=== PATIENT | female | born 1945 | race Caucasian/White ===

== ENCOUNTER 2016-09-05 18:26 | Inpatient (IN) | payer MEDICARE, OTHER ==
--- NOTE | ~2016-09-05 | EKG ---
PATIENT: EMILY LEDEZMA UNIT #: [id number] Ventricular Rate: 110 BPM Atrial Rate: 110 BPM P-R Interval: 166 ms QRS Duration: 74 ms Q-T Interval: 352 ms QTC Calculation(Bezet): 476 ms P [place]: 63 degrees Calculated R [place]: -31 degrees Calculated T [place]: 22 degrees Diagnosis Line: Sinus tachycardia Premature atrial complexes Diagnosis Line: Possible Left atrial enlargement Diagnosis Line: Left axis deviation Diagnosis Line: Abnormal ECG Diagnosis Line: When compared with ECG of 15-AUG-2016 09:37, Diagnosis Line: No significant change was found Diagnosis Line: Confirmed by DARIAN SEVERINO MD ([id number]) on 09/06/2016 Diagnosis Line: 7:32:01 PM INTERPRETING MD: MAYCOL ANDERSEN
--- NOTE | ~2016-09-05 | DS ---
Unit #: [id number] #: [id number] Patient: EMILY LEDEZMA [id number] [address] [place], [place] [address] [id number] I MR#: [id number] NAME: EMILY LEDEZMA ROOM: 452 Age: 70 Sex: F Admission Date: 09/05/2016 : 1945 Discharge Date: 09/08/2016 Attending Physician: Andry Cartwright M.D. Primary Care Physician: Ko Davidson M.D. DISCHARGE SUMMARY DISCHARGE DIAGNOSES 1. Healthcare-acquired pneumonia, treating for presumed gram-negative luis. 2. 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 She is currently receiving chemotherapy and radiation therapy with Dr. Davidson. 3. Chronic normocytic anemia. Hemoglobin and hematocrit are stable during this hospitalization. 4. Type 2 diabetes. Will resume her home sliding scale insulin. 5. Chronic pain. 6. Acute chronic obstructive pulmonary disease exacerbation. She will be discharged on a course of tapered steroids. CONSULTANTS 1. Dr. Harding of pulmonary. 2. Dr. Davidson of oncology. PROCEDURES None. DIAGNOSTIC STUDIES IMAGING: Chest x-ray on 09/05/16. Impression - Worsening when compared to the study from the day before with new patchy alveolar infiltrates in the right mid and lower lung zones. Opacification in the right upper lobe is stable. Left lung is slightly hyperinflated, suspicious for emphysematous changes. Heart size is normal. CT angiogram of chest on 09/05/16. In the body of the findings, it does say no evidence of pulmonary embolism. Impression - Difficult to discern between mass and postobstructive collapse lung. Narrowing of the right upper lobe bronchus, right bronchus intermedius and, to a lesser degree, the right middle and lower lobe bronchi - also seen on the previous study. Interstitial thickening in the lungs bilaterally, worse in the right lung. Noncalcified multiple lung nodules are noted bilaterally, some of which have increased in size in the last 11 days. Could be related to an infectious process, metastasis and lymphangitic carcinomatosis. Moderate right pleural effusion, stable to slightly worse. LABS: On the day of discharge the patient's labs included BMP with glucose of 294, BUN 7, creatinine 0.7, sodium 133, potassium 3.8, chloride 103, CO2 26, magnesium 1.7, total protein 7, total bilirubin 0.5, AST 24, ALT 26, alkaline phosphatase 82. CBC with WBC of 5.1, RBC 2.94, hemoglobin 8.8, hematocrit 27, MCV 91.9, MCH 30, MCHC 32.6, RDW 18.7, platelets 205, MPV 8. Unit #: [id number] #: [id number] Patient: EMILY LEDEZMA MICROBIOLOGY: Blood culture is stable. No growth. Gram stain sputum had moderate WBCs, moderate epithelial cells, a few gram-positive rods, few yeast, rare gram-positive cocci in pairs. Urine culture is pending at the time of discharge of discharge. HOSPITAL COURSE The patient is a pleasant 70-year-old female with past medical history of coronary artery disease, COPD, type 2 diabetes and squamous cell cancer of the lung who was admitted to [facility] due to fever, as well as dyspnea. The patient states that she was feeling well until 24 hours prior to admission when she began to experience feverish symptoms. She stated that she had a fever as high as 102, as well as sweats and chills that woke her up in the middle of the night with symptoms of dyspnea and pleuritic right back pain. She had noticed increasing wheezing and mild cough with the above symptoms. She presented to the emergency department where chest x-ray was done with findings as stated above. She then had a CT per PE protocol, which revealed no pulmonary embolism but, what appears to be, worsening of the lung cancer. The patient had chemotherapy and radiation therapy completed in June 2016. PET scan had mixed response, and she will be getting further chemotherapy next week. She was last admitted to our facility from 08/15 to 08/18 for methicillin-sensitive Staphylococcus aureus pneumonia with sepsis and was discharged home on Omnicef. The patient was seen in consultation with Dr. Davidson, as well as Dr. Harding. As the patient continued to get IV antibiotics and IV steroids, her symptoms were relieved. She has been using oxygen, I believe, more as supportive care during this hospitalization, but I am checking at this time to see if she will need oxygen upon discharge. Due to the fact that we cannot rule out if this is postobstructive pneumonia or worsening of the lung cancer, Dr. Davidson, her oncologist, has recommended that she be discharged with Levaquin 750 mg orally once daily for the next 10 days. I will also give her a course of steroids to taper. She was reminded to continue with her sliding scale insulin. She tells me that her diabetes is controlled with blood sugars typically less than 150. During this hospitalization, her blood sugars have been elevated, I believe, due to the steroid usage; therefore, I stressed for her to remain compliant with sliding scale insulin. DISCHARGE CONDITION Stable. DISCHARGE DISPOSITION Discharged to go home. DISCHARGE FOLLOWUP 1. She can follow up with her primary care physician within 1-2 weeks. 2. Follow up with Dr. Davidson, Dr. Harding per their recommendations. DISCHARGE DIET Heart healthy with consistent carb per [place] [employer] recommendations. DISCHARGE ACTIVITY Resume activity as per prior to hospitalization with ambulating every day. DISCHARGE MEDICINES 1. Pulmicort 2 puffs inhaled b.i.d. 2. Magnesium 400 mg orally daily. 3. Amitriptyline 50 mg orally daily. Unit #: [id number] #: [id number] Patient: EMILY LEDEZMA 4. Phenergan 25 mg orally q.6 hours as needed for nausea. 5. Atorvastatin 80 mg orally at bedtime. 6. Bentyl 10 mg orally t.i.d. as needed for cramping. 7. BuSpar 10 mg orally q.i.d. 8. Metoprolol tartrate 25 mg orally b.i.d. 9. Guaifenesin 600 mg orally b.i.d. 10. Lisinopril 5 mg orally at bedtime. 11. Aspirin 81 mg orally daily. 12. Hydromorphone 4 mg orally q.4 hours as needed for pain. 13. Oxycodone 10 mg orally q.4 hours as needed for pain. 14. Plavix 75 mg orally daily. 15. Omeprazole 20 mg orally daily. 16. Baclofen 10 mg orally t.i.d. 17. Nitroglycerin 0.4 mg orally. Use as directed for chest pain. 18. Levaquin 750 mg orally daily for the next [address] Davidson's recommendation. 19. Steroid. She can use prednisone 40 mg for the next 2 days, then 30 mg for 2 days, then 20 mg for the next 2 days, then 10 mg for the next 2 days, then she can stop. Dictated by... Elias Blue PA-C for Juliano Stratton TD: 09/08/2016 11:11 JOB #: [id number] DISCHARGE SUMMARY X X DISCHARGE SUMMARY
--- NOTE | ~2016-09-05 | CO ---
Unit #: [id number] #: [id number] Patient: EMILY LEDEZMA [id number] [address] [place], [place] [address] [id number] I MR#: [id number] NAME: EMILY LEDEZMA ROOM: 452 Age: 70 Sex: F Admission Date: 09/05/2016 : 1945 Attending Physician: Andry Cartwright M.D. Primary Care Physician: Ko Davidson M.D. CONSULTATION REPORT HISTORY OF PRESENT ILLNESS Ms. Ledezma is a 70-year-old white female with history of COPD, coronary artery disease, stage IV squamous cell carcinoma of the lung who presented to the emergency room with a 24-hour history of weight gain, short of breath, fever, and chills. Temperature was as high as 102. She admitted to some pleuritic back pain, increased wheezing, cough, congestion. She was seen here in the emergency room. Chest CT shows no pulmonary emboli. It did show stable cavitary lesion right upper lobe with narrowing of the right upper lobe orifice and some of the bronchus intermedius. There is increased interstitial thickening in the lungs bilaterally, worse on the right with multiple noncalcified lung nodules and ground glass nodules identified. It seemed to have increased in size since the last CT scan in early May. There is a moderate right pleural effusion which is slightly worse. She has been placed on triple drug therapy for healthcare-acquired pneumonia and we are asked to see. She has been afebrile in the hospital. Her admission O2 saturation on room air was listed at 96%. She received Solu-Medrol, aspirin, potassium in the emergency room. Her lab work was significant for a white count of 7500, hematocrit was 30.3, platelet count was normal. No procalcitonin was done. BNP was 130. PAST MEDICAL HISTORY 1. COPD. 2. Coronary artery disease. 3. Diabetes. 4. Stage IV nonsmall cell lung cancer, squamous cell, followed by Dr. Davidson, having completed external beam radiation in June 2016 with a mixed response on PET scan. 5. History of non ST elevated MA, July 2016, two stents placed. 6. History of hypertension. 7. Hyperlipidemia. 8. History of anemia. 9. Irritable bowel. 10. Cirrhosis. 11. DJD. PAST SURGICAL HISTORY 1. C-spine surgery. 2. Total abdominal hysterectomy. 3. Appendectomy. 4. Liver biopsy. 5. Hernia repair. 6. Bladder and bowel repair. 7. EGD. Unit #: [id number] #: [id number] Patient: EMILY LEDEZMA ALLERGIES Codeine, clindamycin. HOME MEDICATIONS 1. Magnesium. 2. Elavil. 3. Phenergan. 4. Bentyl. 5. BuSpar. 6. Lopressor. 7. Mucinex. 8. Lipitor. 9. Lisinopril. 10. Aspirin. 11. Dilaudid. 12. Plavix. 13. Prilosec. 14. Nitroglycerin. 15. Symbicort. 16. Albuterol. 17. Oxycodone. 18. Baclofen. 19. Letty's Magic Mouthwash. 20. NovoLog sliding scale. FAMILY HISTORY Breast cancer. SOCIAL HISTORY Lives with daughter. Stopped smoking in 2002. No alcohol or illicit drugs. REVIEW OF SYSTEMS A 10-point system negative other than mentioned above. PHYSICAL EXAMINATION GENERAL: White female in no distress. VITAL SIGNS: Blood pressure is 132/67, pulse 111, respiratory rate 18, afebrile. HEENT: Normocephalic and atraumatic. Pupils equal, round, and reactive. Sclerae nonicteric. Nasal passages patent. Posterior pharynx clear, edentulous. NECK: Supple. Trachea midline. No cervical or supraclavicular lymphadenopathy. LUNGS: Reveal diminished breath sounds right upper lobe, otherwise clear. No wheezing. CARDIAC: Regular rate and rhythm. Could not appreciate murmur, rub, or gallop. ABDOMEN: Nontender. Bowel sounds present. No hepatosplenomegaly. EXTREMITIES: Without clubbing, cyanosis, or edema. NEUROLOGIC: Awake, oriented x3. Cranial nerves grossly intact. Muscle strength symmetric bilaterally. Affect calm. SKIN: Warm and dry. DIAGNOSTIC STUDIES As noted. Unit #: [id number] #: [id number] Patient: EMILY LEDEZMA IMPRESSION 1. Dyspnea, likely secondary to chronic obstructive pulmonary disease exacerbation. 2. Nonsmall cell lung cancer, likely with progression. 3. Increased pulmonary nodules, increased density right base, likely progression of malignancy although cannot rule out the possibility of bacterial pneumonia given history of temperature to 102. PLAN 1. Will check procalcitonin level. 2. Adjust antibiotics as indicated. 3. Further recommendations pending this. Dictated by... Juliano Ureña/j luis TD: 09/07/2016 09:25 JOB #: [id number] CONSULTATION REPORT X Samir Harding MD X CONSULTATION REPORT
--- NOTE | ~2016-09-05 | CO ---
Unit #: [id number] #: [id number] Patient: EMILY LEDEZMA [id number] [address] [place], [place] [address] [id number] MR#: [id number] NAME: EMILY LEDEZMA ROOM: 452 Age: 70 Sex: F Admission Date: 09/05/2016 : 1945 Attending Physician: Andry Cartwright M.D. Primary Care Physician: Ko Davidson M.D. CONSULTATION REPORT CHIEF COMPLAINT Nonsmall cell lung cancer, squamous cell, stage IV disease, multiple lesions on the right side and the left side. She received chemoradiation. At present, she is taking Opdivo. She had a recent MO and stent. She came with shortness of breath. HISTORY OF PRESENT ILLNESS This is a 70-year-old female who started smoking at the age of 12 or 13. She has an 80 pack-year history of smoking. Recently, she lost [address] of the chest on March 27, 2016, in the ER, showed a necrotic mass in the right upper lobe. There was mediastinal lymphadenopathy. There were multiple lesions on the right side and a few lesion on the left. At first, we treated her like stage IIIB even though she was stage IV. She received chemoradiation. Patient had a followup PET scan on August 09, 2016. There is a mixed response. There is some FDG uptake. We started patient on Opdivo. She received just one dose. Today, she came with shortness of breath and dyspnea on exertion. Patient had a CT of the chest, PE protocol, on September 05, 2016. There was no PE. However, it looks like there is progression of the disease. Radiology mentioned lymphangitic carcinomatosis. She is on oxygen and receiving inhalers and antibiotics and is feeling better. REVIEW OF SYSTEMS CONSTITUTIONAL: No fever, no chills, no sweats, no weight loss. EYES: No visual symptoms. EARS, NOSE AND THROAT: There is no runny nose or sore throat or difficulty hearing. CARDIOVASCULAR: No chest pain. No shortness of breath. No palpitations. No orthopnea. No PND. RESPIRATORY: As mentioned above. GASTROINTESTINAL: No nausea, vomiting, diarrhea, constipation, hematochezia or melena. GENITOURINARY: No urinary frequency, hesitancy or urgency. No blood in the urine. MUSCULOSKELETAL: No muscle or joint pain. NEUROLOGIC: No headache. No numbness or tingling. No weakness. No seizure. PSYCHIATRIC: No anxiety, depression or mood disturbance. ENDOCRINE: No excessive urination or thirst. DERMATOLOGIC: No rash or change in the skin. Unit #: [id number] #: [id number] Patient: EMILY LEDEZMA ALLERGIC/IMMUNOLOGIC: No symptoms. HEMATOLOGIC/LYMPHATIC: Denies any symptoms. PAST MEDICAL HISTORY 1. Nonsmall cell lung cancer, squamous cell, stage IV, now progressive disease. 2. Chronic obstructive pulmonary disease. 3. Coronary artery disease, status post stent. 4. Congestive heart failure. 5. Hypertension. 6. Diabetes. PAST SURGICAL HISTORY 1. Extensive neck surgery, DJD. 2. Hysterectomy. 3. Appendectomy. ALLERGIES Needs to be verified CURRENT MEDICATIONS 1. Maxipime. 2. Vancomycin. 3. Lovenox. 4. Protonix. 5. Plavix. 6. Aspirin. 7. Symbicort. 8. Dilaudid. SOCIAL HISTORY As mentioned above. She started smoking at the age of 12 and has an 80 pack-year history of smoking, quit recently. Denies alcohol abuse. 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 FAMILY HISTORY Sister had breast cancer at age of 70. Mother had breast cancer at age of 63. PHYSICAL EXAMINATION VITAL SIGNS: Afebrile, O2 saturation on 2 liters 96%, blood pressure 132/67, and pulse 111. GENERAL: Patient is comfortable. ECOG is 0. The patient is pleasant. HEENT: Moist mucosa. Pupils equally reactive to light. Extraocular muscles intact. Sclerae anicteric. No obvious bleeding from nasal mucosa or oral mucosa. Scalp normal. Hearing normal. NECK: No JVD. No lymphadenopathy. LYMPHATIC/HEMATOLOGIC: There is no palpable adenopathy in the neck, axilla or inguinal area. CARDIOVASCULAR: S1, S2. Regular rate and rhythm. No S3 or S4. RESPIRATORY: Bilateral wheezes and rhonchi. ABDOMEN/GASTROINTESTINAL: Abdomen is soft, nontender, nondistended. No hepatosplenomegaly. EXTREMITIES: There is no clubbing, no cyanosis, no edema. No varicose veins. NEUROLOGICAL: Patient is alert, awake and oriented x3. Cranial nerves II-XII are intact. Sensory grossly intact. Motor is 4/5 in all four extremities. Gait is normal. Station is normal. Language is normal. Unit #: [id number] #: [id number] Patient: EMILY LEDEZMA Memory is normal. DTRs +2 in all four extremities. MUSCULOSKELETAL: No joint swelling. No bony tenderness. No muscle tenderness. SKIN: No petechiae, no rash, no ecchymosis. PSYCHIATRIC: No anxiety. No delusions or hallucinations. There is no agitation. Eye contact is normal. Affect is appropriate. There is no flight of ideas. DIAGNOSTIC STUDIES LABORATORY: WBC 6.1, hemoglobin 10.2, and platelets 215,000. Creatinine is 0.5. LFTs are normal. ASSESSMENT AND PLAN This is a 70-year-old female who has the following active issues: 1. Nonsmall cell lung cancer. It is squamous cell. Patient has stage IV disease. She was first treated like a Stage IIIB with chemotherapy and radiation. Now she has progressive disease. She has taken just one to two doses of Opdivo. CT of the chest now shows possible lymphangitic carcinomatosis. Once her acute condition is resolved, then we will give additional doses of Opdivo in the clinic. 2. Cardiovascular. She had a recent myocardial infarction. She has a stent. 3. Respirations. She has chronic obstructive pulmonary disease exacerbation. She is taking two antibiotics, but there is no obvious infiltrate. I will talk to the primary care. 4. Pain. Continue oxycodone. Note sent to Dr. Davidson to verify allergy. Dictated by... Juliano Mariscal TD: 09/06/2016 17:21 JOB #: [id number] CC: Fernanda Diaz A.P.R.N. CONSULTATION REPORT X Ko Davidson MD CONSULTATION REPORT
--- NOTE | ~2016-09-05 | CT16 ---
[facility] A Service of [facility] & [facility] RADIOLOGY TEXT RESULTS PATIENT: EMILY LEDEZMA LOCATION: C4B 45- : 45 UNIT #: [id number] AGE: [address]: Andry Cartwright MD SEX: F ORDER DR: [id number] [facility] [address] [place], [place] [address] [id number] I MR#: [id number] Acc #: [id number] NAME: EMILY LEDEZMA : 1945 SEX: F STUDY DATE/TIME: 09/05/2016 20:56 UNIT: C4B ROOM: [facility] STUDY DESCRIPTION: CT Angio Chest for PE Attending Physician: Ana Paula Reeder M.D. Ordering Physician: Enrique Hernanedz M.D. Primary Care Physician: Ko Davidson M.D. MEDICAL IMAGING REPORT This report is preliminary unless electronic signature is present EXAM CT angiogram chest PE protocol dated 09/05/2016. COMPARISON CT angiogram chest PE protocol dated 08/15/2016. HISTORY Right-sided chest pain and right back pain in this patient with known lung cancer with metastatic disease. Stage III [address] exam was performed with one or more of the following radiation dose reduction techniques: automatic exposure control, adjustment of mA and/or kV according to patient size, and iterative reconstruction. FINDINGS CT angiogram of the chest was obtained with IV contrast in the axial plane followed by sagittal and coronal reformats. No evidence of pulmonary embolism. There is narrowing of the right upper lobe pulmonary artery and its branches due to presence of mass in this region. Its appearance is stable when compared to the prior study. There is also some narrowing of the right middle lobe segmental branches. The left pulmonary artery is of relatively expected caliber without any filling defects to suggest acute thrombus. No aortic aneurysm or dissection. Atherosclerotic plaques are noted in the aorta and its branches. 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 There is moderate right pleural effusion which appears to have slightly increased when compared to the prior study from 11 days ago. There is a cavitating lesion in the right upper lobe. Right upper lobe bronchus is slightly narrowed. It is difficult to discern which portions of the lesion is a mass and which is the postobstructive collapsed relatively normal right lung. This appearance has not significantly changed when compared to the prior study. It extends from the superior right hilum all way to the lateral aspect of the right upper STS. [facility] A Service of [facility] RADIOLOGY TEXT RESULTS PATIENT: EMILY LEDEZMA LOCATION: [facility] 452-01 : 45 UNIT #: [id number] AGE: [address]: Andry Cartwright MD SEX: F ORDER DR: lobe abutting the pleura. Scattered ground-glass densities are noted in the lungs bilaterally, worse on the right when compared to the left and worse when compared the prior study. There are multiple noncalcified bilateral lung nodules involving multiple lobes. The largest one in the left lower lobe measures 1 x 1 cm and it has increased in size from 6 x 6.5 mm. The previously noted medial left upper lobe and posterolateral left upper lobe lung nodules are relatively stable. There is also a new left upper lobe lung nodule in the mid left lung. Two left lower lobe lung nodules are noted and both have increased in size with some minimal nodularity noted in the left lower lobe which is relatively stable. Previously measured 1.0 x 0.8 cm nodule abutting the pleura adjacent to the pleural effusion in the posteromedial right lower lobe has slightly increased in size to 1.4 x 0.9 cm. Other scattered previously seen lung nodule appear to have slightly increased in size with interval new significant interstitial thickening, particularly worse on the right lung. The soft tissue encasing the right upper lobe bronchus, right bronchus intermedius and to a lesser extent the right middle and inferior bronchi are redemonstrated. It is difficult to measure this lesion, the precarinal conglomeration of mediastinal lymphadenopathy measures 1.7 x 4.3 cm when compared to the prior 1.9 x 3.9 cm. There is also some subcarinal soft tissue which is ill-defined and suspicious for matted lymph nodes. There is an 8 mm lymph node which is immediately lateral to the right common carotid artery, just behind the clavicle which is stable to slightly increased. No significant axillary lymphadenopathy. Adjacent to the right internal mammary artery there are some mediastinal lymph nodes noted, the relatively larger one measuring 0.9 x 1.4 cm in the anterior superior mediastinum, stable. Degenerative changes are noted at multiple levels of the thoracolumbar spine. Imaged upper abdomen demonstrates asymmetrically smaller left kidney with left renal cysts measuring 1.4 x 2.0 cm. IMPRESSION 1. Patient is known to have a cavitating lesion in the right upper lobe which extends from the right hilum to the surface of the pleura laterally. It is difficult to discern between the mass and the postobstructive collapse lung. 2. There is narrowing of the right upper lobe bronchus, right bronchus intermedius and to a lesser degree the right middle and lower lobe bronchi. These are also seen on the previous study. 3. There is interval worsening of interstitial thickening in the lungs bilaterally, worse in the right lung. Noncalcified multiple lung nodules are noted bilaterally some of which have increased in size in the last 11 days. They could be related to an infectious process, metastasis and lymphangitic carcinomatosis. 4. Moderate right pleural effusion, stable to slightly worse. 5. Refer above to the detailed dictated report. 1. [facility]. [facility] A Service of [facility] RADIOLOGY TEXT RESULTS PATIENT: EMILY LEDEZMA LOCATION: [place] [address] : 45 UNIT #: [id number] AGE: [address]: Andry Cartwright MD SEX: F ORDER DR: Dictated by... Tripp Edouard M.D. THIS IS AN ELECTRONICALLY VERIFIED REPORT Tripp Edouard M.D. at 09/06/2016 10:45 AM CPR/celeste TD: 09/06/2016 06:26 JOB #: [id number] MEDICAL IMAGING REPORT COPY
--- NOTE | ~2016-09-05 | HP ---
Unit #: [id number] #: [id number] Patient: EMILY LEDEZMA [id number] [address] [place], [place] [address] [id number] E MR#: [id number] NAME: EMILY LEDEZMA ROOM: Age: 70 Sex: F Admission Date: 09/05/2016 : 1945 Attending Physician: Enrique Hernandez M.D. Primary Care Physician: Ko Davidson M.D. HISTORY AND PHYSICAL CHIEF COMPLAINT Healthcare-associated pneumonia and COPD exacerbation. HISTORY OF PRESENT ILLNESS This very pleasant 70-year-old female with CAD, COPD, AODM, and squamous cell CA of the lungs is admitted for healthcare-associated pneumonia. The patient states that she was well until the past 24 hours when she began to experience fever, sweats and chills. States that her temperature was as high as 102 degrees. She awoke around midnight with increasing shortness of breath and pleuritic right back pain. Notes increasing wheezing, and a mild cough with the above. She presents to this emergency department where a chest x-ray does show new right mid and lower lobe infiltrates consistent with pneumonia. The patient has a history of what I believe is stage IV squamous cell CA, status post chemotherapy and XRT which completed June 2016. Apparently, on PET scan, the patient had a mixed response, and plans are for further chemotherapy next week. The patient was last admitted to this facility 08/15 through 08/18/2016 for methicillin-sensitive Staphylococcus aureus pneumonia with sepsis and was discharged on Omnicef. PAST MEDICAL HISTORY 1. 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 Ko Davidson. The patient completed her chemotherapy and external beam radiation June 2016 but only had a mixed response on PET scan. Plans are for further chemotherapy next week. 2. Cnp-VU-ghcbuhcgs myocardial infarction July 2016. Two stents were placed. Ejection fraction 55%. 3. Hypertension. 4. AODM. 5. Hyperlipidemia. 6. History of anemia, also followed by Dr. Davidson. 7. History of cirrhosis, details are unknown. 8. Irritable bowel syndrome. 9. 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 10. C-spine surgery x2. 11. Total abdominal hysterectomy. 12. Appendectomy. 13. Liver biopsy. 14. Hernia repair. 15. Bladder and bowel repair. 16. EGD and colonoscopy performed March 2016 revealing diffuse Unit #: [id number] #: [id number] Patient: EMILY LEDEZMA gastritis, internal hemorrhoids, rectal polyp which was snared. ALLERGIES 1. Codeine. 2. Clindamycin. HOME MEDICATIONS 1. Magnesium 400 mg daily. 2. Elavil 50 mg h.s. 3. Phenergan p.r.n. 4. Bentyl 10 mg t.i.d. p.r.n. 5. BuSpar 10 mg q.i.d. 6. Lopressor 25 mg b.i.d. 7. Mucinex 600 mg b.i.d. 8. Lipitor 80 mg h.s. 9. Lisinopril 5 mg h.s. 10. Aspirin 81 mg daily. 11. Dilaudid 4 mg q.4 h. p.r.n. 12. Plavix 75 mg daily. 13. Omeprazole 20 mg daily. 14. P.r.n. nitroglycerin. 15. Symbicort 160/4.5 two puffs b.i.d. 16. P.r.n. albuterol inhaler. 17. Oxycodone 10 mg q.4 h. as needed. 18. Baclofen 10 mg t.i.d. 19. Letty's Magic mouthwash 10 mL q.i.d. 20. Low dose sliding scale NovoLog. SOCIAL HISTORY The patient lives with her daughter who is her healthcare surrogate. She stopped smoking in 2002. Does not drink alcohol. FAMILY HISTORY Breast cancer. REVIEW OF SYSTEMS Notable for increasing shortness of breath, pleuritic chest pain, fevers, sweats, chills, CAD, hypertension, AODM, anemia, hyperlipidemia, lung cancer, chronic pain, cirrhosis and above-mentioned surgeries. All other systems were reviewed and are negative. PHYSICAL EXAMINATION VITAL SIGNS: Temperature 97.6, pulse 98, respirations 15, blood pressure 117/72, O2 saturation 96% on room air. GENERAL: Pleasant, 70-year-old female currently in no acute distress. HEENT: Eyes PERRLA. Extraocular muscles are intact. Pharynx benign. NECK: Supple without adenopathy or thyromegaly. CHEST: Crackles on the right mid and right lower lobe. A few crackles at the left base. Increased I:E ratio. HEART: Normal S1, S2 without murmur. There is a port in the right upper chest. ABDOMEN: Bowel sounds are present. Mild hepatomegaly on exam, nontender, no masses. EXTREMITIES: Without clubbing, cyanosis, or edema. Pedal pulses are present. No ulcers on the feet. No splinter hemorrhages noted over the nail beds. LYMPH: No cervical, supraclavicular or axillary lymphadenopathy. NEUROLOGIC: Awake, alert, oriented. Cranial nerves are intact. Equal Unit #: [id number] #: [id number] Patient: EMILY LEDEZMA strength throughout. She is able to ambulate without assistance. DIAGNOSTIC STUDIES LABORATORY: Hematocrit 30.3 with a normal MCV, white count and platelet count. SMA-12 glucose 164, potassium 2.8, calcium 7.9, albumin 2.6. BNP 130. Lactic acid normal. ABG pH 7.44, pCO2 of 38, pO2 of 101, O2 saturation 94% on 2 liters of oxygen. Cardiac markers are negative. Flu serology is negative. IMAGING: Chest x-ray shows increased infiltrates in the right mid and right lower lobe consistent with pneumonia along with right upper lobe opacity which is stable. CARDIOVASCULAR: EKG sinus tachycardia, rate 110. APCs noted. Left axis deviation. ASSESSMENT 1. Healthcare-associated pneumonia and chronic obstructive pulmonary disease exacerbation. 2. Stage IV squamous cell lung cancer with mixed response from prior chemotherapy and radiation therapy. Plans are for further chemotherapy next wee by Dr. Davidson. 3. Hypokalemia. 4. Coronary artery disease with normal left ventricular function, status post PCI and stents. 5. Chronic normocytic anemia. 6. Adult-onset diabetes mellitus. 7. Chronic pain. PLAN 1. Await CT scan of the chest. 2. Vancomycin and cefepime and one dose of tobramycin. 3. Will continue steroids, give mucolytics, Symbicort and bronchodilators. Will consult patient's policy cancellation clerk. 4. Florastor. 5. Levemir sliding scale insulin. 6. DVT prophylaxis. 7. Oncology will be notified. 8. Replaced potassium, check magnesium. 9. IV fluids and supportive treatment. Dictated by Ana Paula Reeder M.D. AML/cs TD: 09/05/2016 23:01 JOB #: [id number] Unit #: [id number] #: [id number] Patient: EMILY LEDEZMA HISTORY AND PHYSICAL X Ana Paula Reeder MD X HISTORY AND PHYSICAL
--- NOTE | ~2016-09-05 | CR72 ---
[facility] A Service of [facility] & [facility] RADIOLOGY TEXT RESULTS PATIENT: EMILY LEDEZMA LOCATION: C4B 452-01 : [birth year] UNIT #: [id number] AGE: [address]: Andry Cartwright MD SEX: F ORDER DR: [id number] [facility] [address] [place], [place] [address] [id number] I MR#: [id number] Acc #: [id number] NAME: EMILY LEDEZMA : 1945 SEX: F STUDY DATE/TIME: 09/05/2016 18:44 UNIT: C4B ROOM: [facility] STUDY DESCRIPTION: CR Chest Single View Portable Attending Physician: Ana Paula Reeder M.D. Ordering Physician: Enrique Hernandez M.D. Primary Care Physician: Ko Davidson M.D. MEDICAL IMAGING REPORT This report is preliminary unless electronic signature is present EXAM Single view of the chest dated 09/05/2016 at [address] angiogram chest dated 08/15/2016, single-view chest dated 08/04/2016. HISTORY Shortness of air, right-sided chest pain and back pain today. FINDINGS Single view of the chest was obtained. There is worsening when compared to the study from yesterday, with new, patchy alveolar infiltrates in the right mid and lower lung zones. Previously noted opacification in the right upper lobe is stable. Port cath in the right upper chest and postoperative hardware in the cervical spine are stable. Left lung is slightly hyperinflated, suspicious for emphysematous changes. Heart is of normal size. Dictated by... Tripp Edouard M.D. THIS IS AN ELECTRONICALLY VERIFIED REPORT Tripp Edouard M.D. at 09/06/2016 10:30 AM CPR/psc TD: 09/06/2016 03:48 JOB #: [id number] MEDICAL IMAGING REPORT COPY
[2016-09-05 18:23] LABS: ARTERIAL BLD GAS O2 SATURATION 94.4 % (90.0-100.0); ARTERIAL BLOOD GAS HCO3 26.5 mmol/L; ARTERIAL BLOOD GAS MET HB 0.7 %sat (0.0-2.0); ARTERIAL BLOOD GAS PCO2 38.8 mmHg (35.0-45.0); ARTERIAL BLOOD GAS pH 7.443 (7.350-7.450)
[2016-09-05 18:25] LABS: ARTERIAL BLOOD GAS ALLEN TEST NORMAL; ARTERIAL BLOOD GAS ART SITE LEFT RADIAL; ARTERIAL BLOOD GAS DELIVERY NASAL CANNULA; ARTERIAL DRAW? YES
[~2016-09-05 18:26] MED LIST: ACYCLOVIR PO; ADVAIR 1001 DISK W/D PO; ALBUTEROL NEB; ALBUTEROL17 GM INH; ALBUTEROL17 GM NEB; ALBUTEROL20 ml INH; ALDACTAZIDE 25/1 TAB PO; AMITRIPTYLINE H50 MG PO; AMITRYPTYLINE; AMITRYPTYLINE PO; AMLODIPINE BESYL5 MG PO; ASPIRIN81 M2 PO; ASPIRINEC PO; ATIVAN PO; ATIVAN0.5 MG PO; ATORVASTATIN CA40 MG PO; ATORVASTATIN CA80 MG PO; AUGMENTIN875 M1 PO; AUGMENTIN875 MG PO; BACLOFEN10 MG; BACLOFEN10 MG PO; BACTRIM DS TABL1 TA1 PO; BACTRIM DS TABL1 TAB PO; BAYER CHEWABLE81 MG PO; BENADRYL ITCH28.3 G2 TP; BENTYL10 M1 PO; BENTYL10 MG PO; BENZONATATE PO; BUSPAR PO; BUSPIRONE HCL10 M1 PO; BUSPIRONE HCL10 MG PO; BYETTA; BYETTA10 MCG/0.0 INJ; BYETTA5 MCG/0.02 SQ; CALCIUM CARBON600 M1 PO; CEFDINIR300 M2 PO; CIPRO PO; CLEOCIN HCL300 M1 PO; CLOPIDOGREL75 MG PO; COMBIVENT INH14.7 GM INH; DELTASONE20 MG PO; DEXILANT60 MG PO; DICLOFENAC PO; DICYCLOMINE HCL20 MG PO; DILAUDID8 MG PO; FEOSOL PO; FERROUS GLUCON324 MG PO; FLEXERIL PO; FLEXERIL10 MG PO; FOLIC ACID1 MG PO; GLUCOPHAGE XR500 MG PO; GLUCOPHAGE500 MG PO; GLUCOTROL PO; HCTZ; HCTZ PO; HUMIBID-LA600 MG PO; HUMULIN N VIAL; HYDROCHLOROTHIA25 MG PO; HYDROMORPHONE HC4 MG PO; K-DUR10 MEQ PO; K-DUR20 ME1; KEFLEX500 MG PO; LASIX20 MG PO; LEVAQUIN PO; LEVAQUIN750 MG PO; LEVOFLOXACIN500 MG PO; LIORESAL10 MG PO; LIPITOR40 MG PO; LISINOPRIL; LISINOPRIL PO; LISINOPRIL20 MG PO; LISINOPRIL5 MG PO; LOPRESSOR PO; LORTAB 10/500 T1 TAB PO; MACROBID100 MG PO; MACRODANTIN50 MG PO; MAG-OXIDE400 MG PO; MAGNESIUM400 M1 PO; METFORMIN HCL1000 M1 PO; METFORMIN HCL500 M1 PO; METFORMIN HCL500 M2 PO; METFORMIN PO; METOPROLOL TAR25 MG PO; MEVACOR PO; MIRALAX17 GM PO; MONTELUKAST SOD10 MG PO; NAPROSYN500 MG PO; NITROGLYCERIN0.4 MG PO; NITROGLYGERIN0.4 MG SL; NORVASC PO; NORVASC10 MG PO; NOVOLIN 70/30 V10 M1 SUBQ; NOVOLIN N100 U/M1 SQ; NOVOLIN N100 U/ML INJ; NOVOLIN N100 U/ML SUBQ; NOVOLIN N100 UNIT/1 SQ; NOVOLIN N100 UNIT/1 SUBQ; OMEPRAZOLE20 M2 PO; OXYCODONE; OXYCODONE HCL10 MG PO; OXYCODONE HCL5 M1 PO; OXYCODONE-APAP1 EACH PO; OXYCODONE15 MG PO; OXYCONTIN10 MG PO; PATIENT'S PHARMACY; PERCOCET 10-651 EACH PO; PERCOCET5/325 PO; PHENERGAN PO; PHENERGAN PR; PHENERGAN25 M1 PO; PHENERGAN25 MG PO; PRILOSEC PO; PRINIVIL20 M1 PO; PRINIVIL40 MG PO; PROAIR HFA8.5 GM INH; PROMETHAZINE HC25 MG PO; PROVENTIL; RANITIDINE HCL150 M1 PO; ROBAXIN PO; ROXICODONE5 M1 PO; ROXICODONE5 MG PO; SENOKOT S1 TA1 PO; SEPTRA SUSPENS100 ML; SINGULAIR PO; SPIRIVA18 MCG INH; SYMBICORT INH; TAMIFLU75 M1 PO; TRAMADOL HCL50 M1; TRAMADOL HCL50 M1 PO; TRAMADOL HCL50 M2 PO; TUSSIONEX PENN473 ML PO; ULTRAM PO; VERAMYST; VICODIN 5/500 T1 TAB PO; VICODIN PO; VISTARIL PO; VITAMIN B-1000 MCG/1 IJ; VITAMIN B-1000 MCG/1 INJ; VOLTAREN75 MG PO; ZANTAC PO; ZANTAC150 MG PO; ZESTRIL40 MG PO; ZITHROMAX PO; ZOCOR PO; ZOFRAN PO; ZOFRANODT PO; [UNRECOGNIZED DRUG - OTHER]
[2016-09-05 19:38] LABS: BASOPHIL% 0.5 % (0-2.5); EOSINOPHIL# 0.3 X10e3 (0-0.7); EOSINOPHIL% 3.4 % (0.0-7.0); HEMATOCRIT 30.3 % (35.0-45.0); LYMPHOCYTE# 0.2 X10e3 (1.0-3.5); LYMPHOCYTE% 2.8 % (17.0-45.0); MEAN CELL VOLUME 91.4 FL (83-96); MEAN CORPUSCULAR HGB CONC 32.8 g/dL (30-36); MEAN PLATELET VOLUME 7.7 FL (6.5-11.5); MONOCYTE# 0.8 X10e3 (0-1.0); NEUTROPHIL# 6.1 X10e3 (1.5-7.1); NEUTROPHIL% 82.3 % (40-75); PLATELET COUNT 197 X10e3 (140-420); RED BLOOD COUNT 3.32 X10e (3.90-5.30); RED CELL DISTRIBUTION WIDTH 18.2 % (11.0-15.5); WHITE BLOOD COUNT 7.5 X10e3 (4.0-10.5)
[2016-09-05 19:41] LABS: DIFF IND NO
[2016-09-05] MEDS ORDERED: OXYCODONE HCL10 MG PO (19:49)
[2016-09-05 19:52] LABS: INR 1.2; PARTIAL THROMBOPLASTIN TIME 28.3 SECONDS (23.5-31.3); PROTHROMBIN TIME (PATIENT) 12.5 SECONDS (9.6-11.5)
[2016-09-05] MEDS ORDERED: BACLOFEN10 MG PO ×2 (19:53→19:54)
[2016-09-05] MEDS ORDERED: PROMETHAZINE25 MG/M1 INJ (19:54)
[2016-09-05 20:04] LABS: INFLUENZA A NEG (NEG); INFLUENZA B NEG (NEG)
[2016-09-05 20:12] LABS: ALBUMIN SERUM 2.6 g/dL (3.5-5.0); ALKALINE PHOSPHATASE 92 U/L (32-92); ALT (SGPT) 17 U/L (10-40); AST (SGOT) 19 U/L (10-42); BILIRUBIN, DIRECT 0.2 mg/dL (0.0-0.2); BILIRUBIN,INDIRECT 0.4 mg/dL (0.0-0.9); BILIRUBIN,TOTAL 0.6 mg/dL (0.2-2.0); BLOOD UREA NITROGEN 11 mg/dL (9-23); BUN/CREATININE RATIO 15.71; CALCIUM SERUM 7.9 mg/dL (8.4-10.2); CARBON DIOXIDE 26 mmol/L (22-31); CHLORIDE 103 mmol/L (100-111); CREATININE SERUM 0.7 mg/dL (0.6-1.4); GLOM FILT RATE Estimated ABOVE60 mL/min (>60); GLUCOSE FASTING 164 mg/dL (70-110); PROTEIN TOTAL SERUM 6.5 g/dL (6.0-8.3); SODIUM 137 mmol/L (135-145)
[2016-09-05 20:13] LABS: POC - CKMB 3.3 ng/mL (0.0-7.9); POC - TROPONIN <0.05 ng/mL (<=0.05)
[2016-09-05 20:16] LABS: POTASSIUM 2.8 mmol/L (3.5-5.1)
[2016-09-05 20:21] LABS: POC - CKMB 4.3 ng/mL (0.0-7.9); POC - TROPONIN <0.05 ng/mL (<=0.05)
[2016-09-05 23:43] LABS: POC - CKMB 4.4 ng/mL (0.0-7.9); POC - TROPONIN <0.05 ng/mL (<=0.05)
[2016-09-06 09:55] LABS: BASOPHIL% 0.1 % (0-2.5); EOSINOPHIL% 0.1 % (0.0-7.0); HEMATOCRIT 31.9 % (35.0-45.0); HEMOGLOBIN 10.2 gm/dL (12.0-16.0); LYMPHOCYTE# 0.1 X10e3 (1.0-3.5); MEAN CELL VOLUME 92.2 FL (83-96); MEAN CORPUSCULAR HEMOGLOBIN 29.4 PG (28-34); MEAN CORPUSCULAR HGB CONC 31.9 g/dL (30-36); MONOCYTE# 0.1 X10e3 (0-1.0); MONOCYTE% 2.1 % (3.0-12.0); NEUTROPHIL# 5.8 X10e3 (1.5-7.1); NEUTROPHIL% 95.7 % (40-75); PLATELET COUNT 215 X10e3 (140-420); RED BLOOD COUNT 3.46 X10e (3.90-5.30); RED CELL DISTRIBUTION WIDTH 17.7 % (11.0-15.5); WHITE BLOOD COUNT 6.1 X10e3 (4.0-10.5)
[2016-09-06 10:01] LABS: DIFF IND NO
[2016-09-06 10:17] LABS: BLOOD UREA NITROGEN 11 mg/dL (9-23); CALCIUM SERUM 8.2 mg/dL (8.4-10.2); CARBON DIOXIDE 24 mmol/L (22-31); CHLORIDE 105 mmol/L (100-111); CREATININE SERUM 0.5 mg/dL (0.6-1.4); GLOM FILT RATE Estimated ABOVE60 mL/min (>60); GLUCOSE FASTING 195 mg/dL (70-110); MAGNESIUM 1.7 mg/dL (1.6-3.0); SODIUM 137 mmol/L (135-145)
[2016-09-07 03:52] LABS: HEMATOCRIT 26.9 % (35.0-45.0); HEMOGLOBIN 8.9 gm/dL (12.0-16.0); MEAN CELL VOLUME 91.7 FL (83-96); MEAN CORPUSCULAR HEMOGLOBIN 30.4 PG (28-34); MEAN CORPUSCULAR HGB CONC 33.2 g/dL (30-36); MEAN PLATELET VOLUME 8.2 FL (6.5-11.5); RED BLOOD COUNT 2.93 X10e (3.90-5.30); RED CELL DISTRIBUTION WIDTH 17.9 % (11.0-15.5); WHITE BLOOD COUNT 8.9 X10e3 (4.0-10.5)
[2016-09-07 04:30] LABS: ALBUMIN SERUM 2.4 g/dL (3.5-5.0); ALKALINE PHOSPHATASE 80 U/L (32-92); ALT (SGPT) 20 U/L (10-40); AST (SGOT) 21 U/L (10-42); BILIRUBIN,TOTAL 0.3 mg/dL (0.2-2.0); BLOOD UREA NITROGEN 10 mg/dL (9-23); CALCIUM SERUM 8.3 mg/dL (8.4-10.2); CARBON DIOXIDE 25 mmol/L (22-31); CHLORIDE 107 mmol/L (100-111); CREATININE SERUM 0.5 mg/dL (0.6-1.4); GLOM FILT RATE Estimated ABOVE60 mL/min (>60); GLUCOSE FASTING 256 mg/dL (70-110); POTASSIUM 4.2 mmol/L (3.5-5.1); PROTEIN TOTAL SERUM 5.8 g/dL (6.0-8.3); SODIUM 138 mmol/L (135-145)
[2016-09-07 13:59] LABS: URINE APPEARANCE CLEAR; URINE BILIRUBIN NEG (NEG); URINE BLOOD NEG (NEG); URINE COLOR YELLOW; URINE GLUCOSE NEG (NEG); URINE KETONE NEG (NEG); URINE LEUKOCYTE ESTERASE NEG (NEG); URINE NITRATE NEG (NEG); URINE PH 6.5 (5-8); URINE PROTEIN NEG (NEG); URINE UROBILINOGEN 0.2 MG/DL (NEG)
[2016-09-08 03:51] LABS: BASOPHIL% 0.4 % (0-2.5); EOSINOPHIL% 0.4 % (0.0-7.0); HEMOGLOBIN 8.8 gm/dL (12.0-16.0); LYMPHOCYTE# 0.2 X10e3 (1.0-3.5); LYMPHOCYTE% 3.6 % (17.0-45.0); MEAN CELL VOLUME 91.9 FL (83-96); MEAN CORPUSCULAR HGB CONC 32.6 g/dL (30-36); MONOCYTE# 0.3 X10e3 (0-1.0); MONOCYTE% 5.5 % (3.0-12.0); NEUTROPHIL# 4.6 X10e3 (1.5-7.1); NEUTROPHIL% 90.1 % (40-75); PLATELET COUNT 205 X10e3 (140-420); RED BLOOD COUNT 2.94 X10e (3.90-5.30); RED CELL DISTRIBUTION WIDTH 18.7 % (11.0-15.5); WHITE BLOOD COUNT 5.1 X10e3 (4.0-10.5)
[2016-09-08 03:53] LABS: DIFF IND NO
[2016-09-08 09:15] LABS: ALBUMIN SERUM 2.8 g/dL (3.5-5.0); ALKALINE PHOSPHATASE 82 U/L (32-92); ALT (SGPT) 26 U/L (10-40); AST (SGOT) 24 U/L (10-42); BILIRUBIN,TOTAL 0.5 mg/dL (0.2-2.0); BLOOD UREA NITROGEN 7 mg/dL (9-23); CALCIUM SERUM 8.2 mg/dL (8.4-10.2); CARBON DIOXIDE 26 mmol/L (22-31); CHLORIDE 103 mmol/L (100-111); CREATININE SERUM 0.5 mg/dL (0.6-1.4); GLOM FILT RATE Estimated ABOVE60 mL/min (>60); GLUCOSE FASTING 294 mg/dL (70-110); MAGNESIUM 1.7 mg/dL (1.6-3.0); POTASSIUM 3.8 mmol/L (3.5-5.1); SODIUM 133 mmol/L (135-145)
[2016-09-08] MEDS ORDERED: NYSTATIN5 ML PO (12:56)
[2016-09-08] MEDS ORDERED: PREDNISONE10 MG/DOSE PO (12:57)
[2016-09-08] MEDS ORDERED: LEVAQUIN750 M1 PO (12:57)
[2016-12-31] MEDS ORDERED: DILAUDID4 M1 PO (13:54)
[2016-12-31] MEDS ORDERED: OXYCODONE HCL10 MG PO (13:55)
[2016-12-31] MEDS ORDERED: NOVOLOG100 U/ML SUBQ (13:57)
[2016-12-31] MEDS ORDERED: AMITRYPTYLINE PO (13:58)
[2016-12-31] MEDS ORDERED: BACLOFEN10 MG PO (14:03)
[2016-12-31] MEDS ORDERED: ZOFRAN PO (14:04)
[2017-01-01] MEDS ORDERED: PREDNISONE10 MG PO (10:08)
[2017-01-01] MEDS ORDERED: LACTULOSE10 GM/151 PO (10:09)
[2017-01-01] MEDS ORDERED: LIPITOR80 MG PO (10:09)
[2017-01-01] MEDS ORDERED: BENTYL10 MG PO (10:10)
[2017-01-01] MEDS ORDERED: PRINIVIL5 MG PO (10:12)
[2017-01-01] MEDS ORDERED: DOCUSATE SODIU100 MG PO (10:12)
[2017-01-01] MEDS ORDERED: MONTELUKAST SOD10 MG PO (10:13)
[2017-01-01] MEDS ORDERED: ASPIRIN81 M2 PO (10:13)
[2017-01-01] MEDS ORDERED: CLOPIDOGREL75 MG PO (10:13)
[2017-01-01] MEDS ORDERED: SYMBICORT INH (10:14)
[2017-01-01] MEDS ORDERED: PROAIR HFA8.5 GM INH (10:15)
== END 2016-09-08 14:09 | disposition home or self-care (01) | DRG 190 ==
LOC: CED 18:26 → CEDOF 22:45 → C4B 09-06 01:19
PROVIDERS: Emergency Medicine; Internal Medicine; Internal Medicine Hematology; Physician Assistant Medical
PROC: B32TZZZ Computerized Tomography (CT Scan) of Left Pulmonary Artery (ICD-10-PCS; principal; 2016-09-05)
PROC: B32SZZZ Computerized Tomography (CT Scan) of Right Pulmonary Artery (ICD-10-PCS; 2016-09-05)
DX: J44.1 Chronic obstructive pulmonary disease with (acute) exacerbation (principal); J15.6 Pneumonia due to other Gram-negative bacteria; I11.0 Hypertensive heart disease with heart failure; J91.8 Pleural effusion in other conditions classified elsewhere; C34.11 Malignant neoplasm of upper lobe, right bronchus or lung; I50.9 Heart failure, unspecified; K74.60 Unspecified cirrhosis of liver; D64.9 Anemia, unspecified; J44.0 Chronic obstructive pulmonary disease with (acute) lower respiratory infection; Y95 Nosocomial condition; E11.9 Type 2 diabetes mellitus without complications; Z79.4 Long term (current) use of insulin; G89.29 Other chronic pain; Z87.891 Personal history of nicotine dependence; I25.10 Atherosclerotic heart disease of native coronary artery without angina pectoris; I25.2 Old myocardial infarction; E78.5 Hyperlipidemia, unspecified; Z90.710 Acquired absence of both cervix and uterus; Z88.5 Allergy status to narcotic agent; E87.6 Hypokalemia
CPT/HCPCS: 36415; 36600; 71010; 71275; 80048; 80053; 80076; 80202; 81003; 82308; 82553; 82803; 82947; 83605; 83735; 83880; 84484; 85025; 85027; 85610; 85730; 87040; 87070; 87086; 87205; 87633; 87804; 93005; 94640; 94664; 94760; 96365; 97163; 99285; G8978-GP; G8979-GP; G8980-GP; J0692; J1650; J1815; J2405; J2920; J2930; J3260; J3370; Q9967

== ENCOUNTER → 2016-11-01 | Outpatient (CLI) | payer MEDICARE, OTHER ==
[~2016-11-01] MED LIST changes: +CLOPIDOGREL BIS75 MG PO; +COMBIVENT U/D3 M2 INH; +DEXAMETHASONE1 MG PO; +DICYCLOMINE HCL10 MG PO; +DILAUDID4 M1 PO; +DOCUSATE SODIU100 MG PO; +FENTANYL1 EAC1 TOP; +K-DUR20 ME2 PO; +LACTULOSE10 GM/151 PO; +LEVAQUIN750 M1 PO; +LIPITOR80 MG PO; +NOVOLOG100 U/ML SUBQ; +NYSTATIN5 ML PO; +PREDNISONE10 MG PO; +PREDNISONE10 MG/DOSE PO; +PRINIVIL5 MG PO; +PROMETHAZINE25 MG/M1 INJ
--- NOTE | ~2016-11-01 | CT2 ---
[facility] A Service of [facility] RADIOLOGY TEXT RESULTS PATIENT: EMILY LEDEZMA LOCATION: [facility] #: [id number] : [birth year] UNIT #: [id number] AGE: [address]: Ko Davidson MD SEX: F ORDER DR: [id number] [place] [id number] [facility] [address] [place], [place] [address] [id number] O MR#: [id number] [facility] #: [id number] NAME: EMILY LEDEZMA : 1945 SEX: F STUDY DATE/TIME: 11/01/2016 14:42 UNIT: [facility] ROOM: STUDY DESCRIPTION: CT Abd and Pelv W Cont Attending Physician: Ko Davidson M.D. Ordering Physician: Ko Davidson M.D. Primary Care Physician: Ko Davidson M.D. MEDICAL IMAGING REPORT This report is preliminary unless electronic signature is present EXAM CT abdomen and pelvis with contrast INDICATIONS Followup lung cancer. Observation for metastatic disease. TECHNIQUE CT scanning abdomen and pelvis was performed following administration of IV contrast. Coronal and sagittal reformatted images were obtained. This CT exam was performed with one or more of the following radiation dose reduction techniques: automatic exposure control, adjustment of mA and/or kV according to patient size, and iterative reconstruction. Comparison with PET CT from 08/09/2016 FINDINGS Please refer to separately dictated CT of the chest for findings above the diaphragm. There is a cirrhotic morphology of the liver. There is no focal liver lesion. The gallbladder is unremarkable. The spleen is enlarged. There are multiple cysts within the left kidney. The right kidney is unremarkable. The adrenal glands are unremarkable. The pancreas is unremarkable. There is no evidence for lymphadenopathy. Pelvis: There is a large stool burden within the colon. This may indicate constipation. There is no free fluid or lymphadenopathy. Bone windows demonstrate degenerative changes of the lumbar spine. IMPRESSION No evidence for metastatic disease to the abdomen or pelvis. Dictated by... [facility] A Service of [facility] RADIOLOGY TEXT RESULTS PATIENT: EMILY LEDEZMA [facility] #[facility] [id number] : [birth year] UNIT #: [id number] AGE: [address]: Ko Davidson MD SEX: F ORDER DR: Silverio Oh M.D. THIS IS AN ELECTRONICALLY VERIFIED REPORT Silverio Oh M.D. at 11/03/2016 9:31 AM Nicolasa TD: 11/02/2016 11:14 JOB #: [id number] MEDICAL IMAGING REPORT Page 1 of 1 COPY
--- NOTE | ~2016-11-01 | CT114 ---
[facility] A Service of [facility] RADIOLOGY TEXT RESULTS PATIENT: EMILY LEDEZMA LOCATION: [facility] : [birth year] UNIT #: [id number] AGE: [address]: Ko Davidson MD SEX: F ORDER DR: [id number] [facility] [address] [place], [place] [address] [id number] O MR#: [id number] [facility] #: [id number] NAME: EMILY LEDEZMA : 1945 SEX: F STUDY DATE/TIME: 11/01/2016 14:42 UNIT: [facility] ROOM: STUDY DESCRIPTION: CT Soft Tissue Neck W Cont Attending Physician: Ko Davidson M.D. Ordering Physician: Ko Davidson M.D. Primary Care Physician: Ko Davidson M.D. MEDICAL IMAGING REPORT This report is preliminary unless electronic signature is present EXAM Soft tissue neck CT with contrast. DATE OF STUDY 11/01/[address], 09/05/2016 CLINICAL HISTORY History of lung cancer, cough, and hemoptysis. Observation of suspected metastatic malignancy. PROCEDURE Axial contrast-enhanced soft tissue neck CT with multiplanar reformats. This CT exam was performed with one or more of the following radiation dose reduction techniques: automatic exposure control, adjustment of mA and/or kV according to patient size, and iterative reconstruction. FINDINGS There is no suspicious cervical adenopathy. There is thickening of the lower cervical esophagus and there are changes in the upper mediastinum. Stable since the CT chest of 09/05/2016. No new abnormality is seen in the upper mediastinum, but the chest is incompletely evaluated. There is no cervical adenopathy. There are atherosclerotic vascular calcifications at the cervical carotid bifurcations but no stenosis in either internal carotid. There has been previous extensive spinal fusion, but there is no bone erosion or destruction. [facility] A Service of [facility] RADIOLOGY TEXT RESULTS PATIENT: EMILY LEDEZMA LOCATION: [facility] : [birth year] UNIT #: [id number] AGE: [address]: Ko Davidson MD SEX: F ORDER DR: ARNALDO Neck soft tissues are unremarkable. Changes in the upper mediastinum are unchanged since the CT chest of 09/05/2016 including adenopathy in the precarinal region and AP window. The chest is incompletely evaluated but no new abnormality is seen in the upper mediastinum and the exam is otherwise unremarkable. Dictated by... Geraldo Lorenz M.D. THIS IS AN ELECTRONICALLY VERIFIED REPORT Geraldo Lorenz M.D. at 11/03/2016 4:53 PM DORI/joel TD: 11/02/2016 16:03 JOB #: [id number] MEDICAL IMAGING REPORT Page 1 of 1 COPY
--- NOTE | ~2016-11-01 | CT55 ---
[facility] A Service of [facility] & [facility] RADIOLOGY TEXT RESULTS PATIENT: EMILY LEDEZMA [facility] [birth year] UNIT #: [id number] AGE: [address]: Ko Davidson MD SEX: F ORDER DR: [id number] [facility] [address] [place], [place] [address] [id number] O MR#: [id number] [facility] #: [id number] NAME: EMILY LEDEZMA : 1945 SEX: F STUDY DATE/TIME: 11/01/2016 14:42 UNIT: [facility] ROOM: STUDY DESCRIPTION: CT Chest W Con Attending Physician: Ko Davidson M.D. Ordering Physician: Ko Davidson M.D. Primary Care Physician: Ko Davidson M.D. MEDICAL IMAGING REPORT This report is preliminary unless electronic signature is present EXAM CT of the chest with contrast INDICATION Follow up lung cancer. Observation of a malignant process. TECHNIQUE CT scan of the chest was performed following the administration of IV contrast. Coronal and sagittal reformatted images were obtained. This CT examination was performed with one or more of the following radiation dose reduction techniques: automatic exposure control, adjustment of mA and/or kV according to patient size, and iterative reconstruction. COMPARISON 09/05/2016. FINDINGS There is a mass in the medial right lower lobe measuring 4.3 x 3 cm. This appears to have increased in size from the previous study where it measured about 3.6 x 2.1 cm. There is a central mass on the right located adjacent to the bronchus intermedius measuring about 3.1 x 2.4 cm. This was present on the previous study and does not appear to be significantly changed. There is partial atelectasis of the right upper lobe. There is a moderate sized right pleural effusion. There is consolidation in the superior segment of the right lower lobe and consolidation more inferiorly in the right lower lobe. There are multiple metastatic nodules within the right lung. There are also multiple metastatic lesions within the left lower lobe. Index lesion in the left lower lobe measures about 1.6 cm in greatest dimension. Previously it measured about 9 mm. There is a lesion in the superior segment of the left lower lobe which is also increased in size. There are multiple lesions in the left upper lobe as well. The metastatic nodules in the right lung also appear to have slightly STS. [facility] A Service of [facility] & [facility] RADIOLOGY TEXT RESULTS PATIENT: EMILY LEDEZMA LOCATION: [facility] : 45 UNIT #: [id number] AGE: [address]: Ko Davidson MD SEX: F ORDER DR: increased in size with an index nodule in the right lung base measuring 1.5 cm, previously 1.2 cm. There is abnormal mediastinal lymphadenopathy. A em conglomerate within the precarinal space measures about 4.0 x 2.0 cm. This is probably not significantly changed. Please refer to separately dictated CT of the abdomen and pelvis for findings below the diaphragm. The bone windows are unremarkable. IMPRESSION 1. Interval worsening in the appearance of the chest. There are 2 dominant masses in the right lung. An inferior mass has increased in size and a more superior mass is probably not significantly changed in size. There remains near complete atelectasis of the left upper lobe due to obstruction from the central mass. There is consolidation elsewhere within the right lower lobe. 2. There are multiple metastatic lesions in both lungs, several of which have increased in size. 3. There are enlarged mediastinal lymph nodes that do not appear significantly changed. 4. There is a moderate-sized right pleural effusion which has increased in size. Dictated by... Silverio Oh M.D. THIS IS AN ELECTRONICALLY VERIFIED REPORT Silverio Oh M.D. at 11/03/2016 9:31 AM TE/eliazar TD: 11/02/2016 12:22 JOB #: [id number] MEDICAL IMAGING REPORT Page 1 of 1 COPY
[2016-11-01 15:40] LABS: POC - CREATININE 0.57 mg/dL (0.44-1.03); POC - GFR >60.0 mL/min (>60)
== END | disposition home or self-care (01) ==
LOC: CCAT 13:39
PROVIDERS: Internal Medicine Hematology
DX: C34.11 Malignant neoplasm of upper lobe, right bronchus or lung (principal); D50.9 Iron deficiency anemia, unspecified; K90.9 Intestinal malabsorption, unspecified; C78.02 Secondary malignant neoplasm of left lung; C78.01 Secondary malignant neoplasm of right lung; R59.0 Localized enlarged lymph nodes; J90 Pleural effusion, not elsewhere classified; J18.1 Lobar pneumonia, unspecified organism; J98.11 Atelectasis
CPT/HCPCS: 70491; 71260; 74177; 82565; Q9967

== ENCOUNTER 2016-12-06 21:32 | Inpatient (IN) | payer MEDICARE, OTHER ==
--- NOTE | ~2016-12-06 | CR72 ---
[facility] A Service of [facility] RADIOLOGY TEXT RESULTS PATIENT: EMILY LEDEZMA LOCATION: [facility] : 45 UNIT #: [id number] AGE: [address]: Gareth Franco MD SEX: F ORDER DR: [id number] [facility] [address] [place], [place] [address] [id number] I MR#: [id number] Acc #: [id number] NAME: EMILY LEDEZMA : 1945 SEX: F STUDY DATE/TIME: 12/06/2016 22:59 UNIT: [facility] ROOM: [facility] STUDY DESCRIPTION: CR Chest Single View Portable Attending Physician: Gareth Franco M.D. Referring Physician: Gareth Franco M.D. Ordering Physician: Antoni Fuentes D.O. Primary Care Physician: Ko Davidson M.D. MEDICAL IMAGING REPORT This report is preliminary unless electronic signature is present EXAM Portable chest. INDICATION Shortness of air today. PROCEDURE Frontal view chest. COMPARISON 09/05/2016 FINDINGS Increasing dense opacity in the right upper lung zone. There are new patchy opacities in the lateral left lung base. Previously demonstrated opacity in the right lower lung zone has improved. IMPRESSION 1. New dense opacity in the right upper lung zone with new patchy opacities in the left lung base. 2. The previously demonstrated right basilar opacity has resolved. Dictated by... Luis F Malik M.D. THIS IS AN ELECTRONICALLY VERIFIED REPORT Luis F Malik M.D. at 12/11/2016 7:25 AM EED/joel TD: 12/07/2016 09:36 JOB #: [id number] [facility] A Service [facility] RADIOLOGY TEXT RESULTS PATIENT: EMILY LEDEZMA LOCATION: [facility] : 45 UNIT #: [id number] AGE: [address]: Gareth Franco MD SEX: F ORDER DR: MEDICAL IMAGING REPORT Page 1 of 1 COPY
--- NOTE | ~2016-12-06 | CO ---
Unit #: [id number] #: [id number] Patient: EMILY LEDEZMA [id number] [address] [place], [place] [address] [id number] I MR#: [id number] NAME: EMILY LEDEZMA ROOM: 235 Age: 70 Sex: F Admission Date: 12/07/2016 : 1945 Attending Physician: Gareth Franco M.D. Primary Care Physician: Ko Davidson M.D. Requesting Physician: Gareth Franco M.D. Consultation Date: 12/07/2016 CONSULTATION REPORT CHIEF COMPLAINT Blj-nspot-ptue lung cancer, squamous cell, stage 4, received palliative chemoradiation, progressed, on Optiva progressed, now receiving Tecentriq. Recent myocardial infarction. Possible pneumonia. HISTORY OF PRESENT ILLNESS The patient is a 70-year-old female who started smoking at age of 12. She has an 80 pack-year history of smoking. Recently the patient had multiple imaging studies. The patient has multiple lesions on the right side. Now she has squamous cell carcinoma. She first received palliative chemoradiation. This was because of a couple of very large lesions. She has had mixed response. She was started on Optiva and now she has progression. She is taking Tecentriq. The patient has had multiple hospitalizations with atypical chest pain, shortness of breath and she had myocardial infarction. The patient came to the hospital and has wheezing and right posterior chest wall pain. CT of the chest is pending. However, chest x-ray on 11/18/2016 showed possible new dense opacity in the right upper lobe. This could be either infection or progressive disease. At present she is very anxious and crying. PAST MEDICAL HISTORY 1. Mje-bouqw-vhkj lung cancer, squamous cell, stage 4, progressive disease. 2. Chronic obstructive pulmonary disease. 3. Recent myocardial infarction. 4. Congestive heart failure. 5. Hypertension. 6. Diabetes. PAST SURGICAL HISTORY 1. Extensive neck surgery for degenerative joint disease. 2. Hysterectomy. 3. Appendectomy. SOCIAL HISTORY The patient has an 80 pack-year history of smoking. Denies alcohol. 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 FAMILY HISTORY Sister had breast cancer at age of 70. Mother had breast cancer at age Unit #: [id number] #: [id number] Patient: EMILY LEDEZMA. ALLERGIES No known drug allergies. CURRENT MEDICATIONS 1. Vancomycin. 2. Lipitor. 3. Insulin. 4. Lovenox. 5. Roxicodone. 6. Zestril. REVIEW OF SYSTEMS CONSTITUTIONAL: No fever, no chills, no sweats, no weight loss. EYES: No visual symptoms. EARS, NOSE AND THROAT: There is no runny nose or sore throat or difficulty hearing. CARDIOVASCULAR: No chest pain. No shortness of breath. No palpitations. No orthopnea. No PND. RESPIRATORY: As mentioned above. GASTROINTESTINAL: No nausea, vomiting, diarrhea, constipation, hematochezia or melena. GENITOURINARY: No urinary frequency, hesitancy or urgency. No blood in the urine. MUSCULOSKELETAL: No muscle or joint pain. NEUROLOGIC: No headache. No numbness or tingling. No weakness. No seizure. PSYCHIATRIC: As mentioned above. ENDOCRINE: No excessive urination or thirst. DERMATOLOGIC: No rash or change in the skin. ALLERGIC/IMMUNOLOGIC: No symptoms. HEMATOLOGIC/LYMPHATIC: Denies any symptoms. PHYSICAL EXAMINATION GENERAL: Patient is comfortable. ECOG is 0. The patient is pleasant. VITAL SIGNS: Temperature afebrile, pulse 111, respiratory rate 20, O2 saturations on 2 liters 95%, blood pressure 137/79. HEENT: Moist mucosa. Pupils equally reactive to light. Extraocular muscles intact. Sclerae anicteric. No obvious bleeding from nasal mucosa or oral mucosa. Scalp normal. Hearing normal. NECK: No JVD. No lymphadenopathy. LYMPHATIC/HEMATOLOGIC: There is no palpable adenopathy in the neck, axilla or inguinal area. CARDIOVASCULAR: S1, S2. Regular rate and rhythm. No S3 or S4. RESPIRATORY: Chest symmetrical, normal. Clear to auscultation bilaterally. No wheezes, no rales, no rhonchi. No dullness to percussion. ABDOMEN/GASTROINTESTINAL: Abdomen is soft, nontender, nondistended. No hepatosplenomegaly. EXTREMITIES: There is no clubbing, no cyanosis, no edema. No varicose veins. NEUROLOGICAL: Patient is alert, awake and oriented x3. Cranial nerves II-XII are intact. Sensory grossly intact. Motor is 4/5 in all four extremities. Gait is normal. Station is normal. Language is normal. Memory is normal. DTRs +2 in all four extremities. MUSCULOSKELETAL: No joint swelling. No bony tenderness. No muscle tenderness. SKIN: No petechiae, no rash, no ecchymosis. Unit #: [id number] #: [id number] Patient: EMILY LEDEZMA PSYCHIATRIC: No anxiety. No delusions or hallucinations. There is no agitation. Eye contact is normal. Affect is appropriate. There is no flight of ideas. DIAGNOSTIC STUDIES IMAGING: Chest x-ray as mentioned above. LABORATORY: White blood cell count 16.3, hemoglobin 10.4, platelets 279. Creatinine 0.3, LFTs normal. ASSESSMENT This is a 70-year-old female with the followin. Coa-oitsx-aryp lung cancer, squamous cell, stage 4. She received palliative chemoradiation. She received Optiva. At present she is taking Tecentriq now. CT of the chest will provide information regarding response. 2. Pneumonia. I doubt that she has a pneumonia. This could be most likely progression. She has no fever and no chills at present. She is comfortable. She is taking vancomycin. She is followed by Dr. Harding. 3. Depression. Continue Zoloft. 4. Anemia. Will check iron studies. 5. Dehydration. Will give her IV fluids. 6. Mucositis. Continue Letty's Magic Potion. DISCUSSION I have a discussion with the patient. She is kind of depressed and crying. Her Zoloft should help. Her prognosis is poor. Dictated by... Juliano Mariscal TD: 12/07/2016 14:29 JOB #: [id number] CONSULTATION REPORT Page 1 of 1 X Ko Davidson MD CONSULTATION REPORT
--- NOTE | ~2016-12-06 | HP ---
Unit #: [id number] #: [id number] Patient: EMILY LEDEZMA [id number] [address] [place], [place] [address] [id number] I MR#: [id number] NAME: EMILY LEDEZMA ROOM: 235 Age: 70 Sex: F Admission Date: 12/07/2016 : 1945 Attending Physician: Gareth Franco M.D. Referring Physician: Gareth Franco M.D. Primary Care Physician: Ko Davidson M.D. HISTORY AND PHYSICAL HISTORY Ms. Ledezma is a 70-year-old white female with metastatic non-small cell lung cancer who presents to the emergency room with right posterior upper chest pain and shoulder pain. She has been more short of breath and was apparently wheezing on evaluation. A chest x-ray was done in the emergency room and read by radiology as showing increased infiltrate in the right upper lobe and left lower lobe. She was admitted. We were called to admit the patient for possible pneumonia. Her white count was 16,300. Last week she was treated by Dr. Davidson for dyspnea with steroids and an antibiotic. She has not had any purulent sputum. She has not had any fever or chills. Apparently they were going to do a CT scan in the emergency room, but there was a problem with IV access, and that has not been done yet. PAST MEDICAL HISTORY Significant for COPD with chronic hypoxemic respiratory failure, stage IV non-small cell lung cancer, type 2 diabetes mellitus, chronic pain, coronary artery disease, hyperlipidemia, hypertension, history of AL, irritable bowel syndrome, some history of cirrhosis, DJD. SURGERIES C-spine surgery, total abdominal hysterectomy, appendectomy, liver biopsy, hernia repair, bladder and bowel outlet, EGD. ALLERGIES Codeine, clindamycin. HOME MEDICATIONS Oxycodone, baclofen, Levaquin, prednisone, dicyclomine, Deltasone, atorvastatin, metformin, Plavix, aspirin, Singulair, lisinopril, Elavil, Colace. She is on some inhalers at home, but she is not sure what they are presently. FAMILY HISTORY Breast cancer. SOCIAL HISTORY Lives with daughter. Stopped smoking in 2012. No alcohol or illicit drugs. REVIEW OF SYSTEMS A 10-point system otherwise negative. PHYSICAL EXAMINATION GENERAL: White female, no distress, sitting bed, able to speak in complete sentences. Unit #: [id number] #: [id number] Patient: EMILY LEDEZMA VITAL SIGNS: Blood pressure 137/79, pulse 111, respiratory rate 20, afebrile. HEENT: Normocephalic, atraumatic. Pupils equal, round and reactive. Sclerae nonicteric. Nasal passages patent. Posterior pharynx clear. Mucous membranes moist. NECK: Neck is supple. Trachea midline. No cervical, supraclavicular lymphadenopathy. RESPIRATORY: Lungs revealed diminished breath sounds bilaterally, prolonged expiratory phase. CARDIAC: Heart sounds distant. Regular rate and rhythm. Could not appreciate murmur, rub or gallop. ABDOMEN: Nontender. Bowel sounds present. No hepatosplenomegaly. EXTREMITIES: Without clubbing, cyanosis or edema. NEUROLOGIC: Awake, oriented x3. Cranial nerves intact. DIAGNOSTIC STUDIES LABORATORY STUDIES: BMP reviewed. Lactic acid level 1. White blood cell count as noted. CBC as noted. IMAGING: CT scans have been reviewed from October, which show progression of disease. Chest x-ray is as noted. IMPRESSION 1. COPD exacerbation. 2. Acute and chronic respiratory failure. 3. New or increased infiltrative process right upper lobe and left lower lobe, possibly progression of malignancy; less likely pneumonia given lack of systemic symptoms. 4. Stage IV non-small cell lung cancer. 5. Other problems as mentioned above. 6. History of obstructive sleep apnea, currently not treated, followed by Dr. Trejo in the past. PLAN Will check chest CT scan to compare to previous CT from October to see if there has been progression of disease and confirm diagnosis of pneumonia. Will also check procalcitonin. Will make further recommendations pending this. Dictated by Juliano Ureña/jagruti TD: 12/07/2016 12:42 JOB #: [id number] Unit #: [id number] #: [id number] Patient: EMILY LEDEZMA HISTORY AND PHYSICAL Page 1 of 1 X Samir Harding MD HISTORY AND PHYSICAL
--- NOTE | ~2016-12-06 | CT57 ---
[facility] A Service of [facility] RADIOLOGY TEXT RESULTS PATIENT: EMILY LEDEZMA LOCATION: C2A 235-01 : [birth year] UNIT #: [id number] AGE: [address]: Gareth Franco MD SEX: F ORDER DR: [id number] [facility] [address] [place], [place] [address] [id number] I MR#: [id number] Acc #: [id number] NAME: EMILY LEDEZMA : 1945 SEX: F STUDY DATE/TIME: 12/07/2016 19:38 UNIT: C2A ROOM: 235 STUDY DESCRIPTION: CT Chest Wo Cont Attending Physician: Gareth Franco M.D. Referring Physician: Gareth Franco M.D. Ordering Physician: Ko Davidson M.D. Primary Care Physician: Ko Davidson M.D. MEDICAL IMAGING REPORT This report is preliminary unless electronic signature is present EXAM Chest CT without contrast HISTORY Short of air, chest pain, hard to breathe for 2 days. Patient has a known history of lung cancer and cirrhosis. COMMENT CT of the chest performed in the axial plane without contrast followed by sagittal and coronal reconstructed imaging. This CT exam was performed with one or more of the following radiation dose reduction techniques: Automatic exposure control, adjustment of mA and/or kV according to patient size, and iterative reconstruction. Comparison study is from 11/01/2016. There is interval worsening in the appearance of the chest, with increasing right pleural fluid since previous. Moderate amount of pleural fluid is seen predominantly posteriorly, but some of it is loculated. There is also worsening consolidation, best appreciated in the right upper lung. Air bronchograms are still seen. There is increase in size of the right hilar mass, consistent with the known lung cancer, currently about 4.7 x 3.6 cm where it was 4.3 x 3 cm previously. There are multiple bilateral parenchymal masses, which are consistent with pztw-ay-xpzy metastases also again seen, and these are probably quite similar in size. There is new nodular parenchymal disease with thickening at the left lung base. While this could be infectious or inflammatory, this is concerning for lymphangitic spread of disease. No pneumothorax is seen. There is also increasing pericardial fluid now measuring up to about 1-1.5 cm in width near the cardiac apex. [facility] A Service of [facility] RADIOLOGY TEXT RESULTS PATIENT: EMILY LEDEZMA LOCATION: [place] [address] : [birth year] UNIT #: [id number] AGE: [address]: Gareth Franco MD SEX: F ORDER DR: Partly seen are findings in the upper abdomen, consistent with known cirrhosis. There are atherosclerotic vascular calcifications and probably coronary artery stents. There is right hemithorax volume loss with mediastinal shift to the right again noted. Study is limited by the lack of IV contrast media. There are partially calcified lymph nodes in the mediastinum and there is likely also some left side hilar adenopathy, difficult to measure without contrast. There are degenerative changes in the thoracic spine. IMPRESSION 1. Interval worsening in the appearance of the chest. Findings are consistent with known lung cancer with likely lxca-ft-wsfe metastases. There is increasing airspace disease and abnormal tissue along the peribronchovascular soft tissues on comparison to the prior study, particularly in the right upper lobe. There is also new, somewhat reticulonodular disease at the left base, which could be infectious or inflammatory but, alternatively, could be lymphangitic spread of disease. The mass at the right hilum is larger, consistent with interval increase in size of known lung cancer. There is no pneumothorax. 2. Increasing pericardial fluid now measuring about 1-1.5 cm in width in the region of the apex. 3. Partial demonstration of known findings of cirrhosis. Dictated by... Fiordaliza Kimball M.D. THIS IS AN ELECTRONICALLY VERIFIED REPORT Fiordaliza Kimball M.D. at 12/08/2016 10:04 AM NADIRA/sanam TD: 12/08/2016 02:47 JOB #: [id number] MEDICAL IMAGING REPORT Page 1 of 1 COPY
--- NOTE | ~2016-12-06 | DS ---
Unit #: [id number] #: [id number] Patient: EMILY LEDEZMA [id number] [address] [address] [id number] I MR#: [id number] NAME: EMILY LEDEZMA ROOM: 235 Age: 70 Sex: F Admission Date: 12/07/2016 : 1945 Discharge Date: 12/08/2016 Attending Physician: Gareth Franco M.D. Referring Physician: Gareth Franco M.D. Primary Care Physician: Ko Davidson M.D. DISCHARGE SUMMARY DISCHARGE DIAGNOSES 1. Acute on chronic respiratory failure. 2. Chronic obstructive pulmonary disease exacerbation. 3. Progression of stage IV non-small cell lung cancer. 4. History of obstructive sleep apnea, not currently on therapy. Wishes to be reconsidered for evaluation. 5. Diabetes mellitus. 6. Chronic pain. 7. Coronary artery disease. 8. Hyperlipidemia. 9. Hypertension. 10. Irritable bowel syndrome. 11. History of cirrhosis. 12. Degenerative joint disease. DISCHARGE MEDICATIONS 1. DuoNeb Mini-Neb q.4 hours as needed. 2. Prednisone 40 mg for 3 days, decrease by 10 mg q.3 days until off. 3. Symbicort 160/4.5 mcg 2 puffs b.i.d. 4. Elavil 50 mg q.h.s. 5. Metformin 500 mg p.o. b.i.d. 6. Atorvastatin 80 mg daily. 7. Dicyclomine 10 mg 1-2 t.i.d. 8. Colace 100 mg b.i.d. as needed. 9. Lisinopril 5 mg p.o. daily. 10. Singulair 10 mg daily. 11. Aspirin 81 mg daily. 12. Oxycodone 10 q.4 hours as needed for pain. 13. Plavix 75 mg daily. 14. Baclofen 10 mg t.i.d. 15. Home O2 at prescribed level. FOLLOW-UP 1. Follow up with Dr. Davidson on Sunday for more chemotherapy. 2. Follow up in my office in 3 weeks for evaluation for followup on COPD and possible obstructive sleep apnea. HOSPITAL COURSE Patient presented with right-sided back pain and shortness of breath with wheezing. Chest x-ray appeared to show new densities in the right upper lobe and left lower lobe, and the emergency room felt that this represented pneumonia even though she did not have any purulent sputum, fever or chills. White count was elevated at about 16,000. She was admitted. Antibiotics were continued. A CT scan was done, which showed Unit #: [id number] #: [id number] Patient: EMILY LEDEZMA progression of lung cancer and likely not pneumonia. Procalcitonin level was less than 0.5 consistent with not having pneumonia. She improved with inhaled bronchodilators and steroids. She will be discharged home on a tapering dose of prednisone and the above-mentioned medications, to follow up with Dr. Davisdon on Sunday for continuation of chemotherapy. We will see her back in the office as noted above. Dictated by... Samir Harding M.D. ARTURO/jagruti TD: 12/11/2016 09:40 JOB #: [id number] DISCHARGE SUMMARY Page 1 of 1 X Samir Harding MD X DISCHARGE SUMMARY
[~2016-12-06 21:32] MED LIST changes: -CLOPIDOGREL BIS75 MG PO; -COMBIVENT U/D3 M2 INH; -DEXAMETHASONE1 MG PO; -DICYCLOMINE HCL10 MG PO; -DILAUDID4 M1 PO; -DOCUSATE SODIU100 MG PO; -FENTANYL1 EAC1 TOP; -K-DUR20 ME2 PO; -LACTULOSE10 GM/151 PO; -LIPITOR80 MG PO; -NOVOLOG100 U/ML SUBQ; -PREDNISONE10 MG PO; -PRINIVIL5 MG PO
[2016-12-07 01:31] LABS: POC - CKMB 1.1 ng/mL (0.0-7.9); POC - TROPONIN <0.05 ng/mL (<=0.05)
[2016-12-07 01:31] LABS: INR 1.1; PARTIAL THROMBOPLASTIN TIME 29.4 SECONDS (23.5-31.3); PROTHROMBIN TIME (PATIENT) 11.7 SECONDS (9.6-11.5)
[2016-12-07 01:35] LABS: BASOPHIL# 0.1 X10e3 (0-0.3); BASOPHIL% 0.5 % (0-2.5); EOSINOPHIL% 0.3 % (0.0-7.0); HEMOGLOBIN 10.4 gm/dL (12.0-16.0); LYMPHOCYTE# 0.5 X10e3 (1.0-3.5); LYMPHOCYTE% 3.1 % (17.0-45.0); MEAN CELL VOLUME 78.2 FL (83-96); MEAN CORPUSCULAR HEMOGLOBIN 24.8 PG (28-34); MEAN CORPUSCULAR HGB CONC 31.7 g/dL (30-36); MEAN PLATELET VOLUME 7.9 FL (6.5-11.5); MONOCYTE# 1.2 X10e3 (0-1.0); MONOCYTE% 7.2 % (3.0-12.0); NEUTROPHIL# 14.5 X10e3 (1.5-7.1); NEUTROPHIL% 88.9 % (40-75); PLATELET COUNT 279 X10e3 (140-420); RED BLOOD COUNT 4.22 X10e (3.90-5.30); RED CELL DISTRIBUTION WIDTH 18.9 % (11.0-15.5); WHITE BLOOD COUNT 16.3 X10e3 (4.0-10.5)
[2016-12-07 01:36] LABS: DIFF IND YES
[2016-12-07 01:44] LABS: ALBUMIN SERUM 3.2 g/dL (3.5-5.0); BILIRUBIN, DIRECT 0.2 mg/dL (0.0-0.2); BILIRUBIN,INDIRECT 0.5 mg/dL (0.0-0.9); BILIRUBIN,TOTAL 0.7 mg/dL (0.2-2.0); BUN/CREATININE RATIO 33.33; CALCIUM SERUM 8.8 mg/dL (8.4-10.2); CREATININE SERUM 0.3 mg/dL (0.6-1.4); GLOM FILT RATE Estimated 116.1 mL/min (>60); POTASSIUM 3.3 mmol/L (3.5-5.1); PROTEIN TOTAL SERUM 7.3 g/dL (6.0-8.3)
[2016-12-07 02:06] LABS: PLATELET ESTIMATE NORMAL (NORMAL); POLYCHROMASIA SL
[2016-12-07 02:07] LABS: MICROCYTOSIS SL; POIKILOCYTOSIS SL
[2016-12-07 03:07] LABS: POC - CKMB <1.0 ng/mL (0.0-7.9); POC - TROPONIN <0.05 ng/mL (<=0.05)
[2016-12-07] MEDS ORDERED: DICYCLOMINE HCL10 MG PO (05:12)
[2016-12-07] MEDS ORDERED: ATORVASTATIN CA80 MG PO (05:13)
[2016-12-07] MEDS ORDERED: DELTASONE20 MG PO (05:13)
[2016-12-07] MEDS ORDERED: METFORMIN HCL500 M1 PO (05:14)
[2016-12-07] MEDS ORDERED: CLOPIDOGREL BIS75 MG PO (05:15)
[2016-12-07] MEDS ORDERED: ASPIRIN81 M2 PO (05:15)
[2016-12-07] MEDS ORDERED: MONTELUKAST SOD10 MG PO (05:17)
[2016-12-07] MEDS ORDERED: LISINOPRIL5 MG PO (05:18)
[2016-12-07] MEDS ORDERED: AMITRIPTYLINE H50 MG PO (05:18)
[2016-12-07] MEDS ORDERED: DOCUSATE SODIU100 MG PO (05:20)
[2016-12-08 06:10] LABS: HEMATOCRIT 32.4 % (35.0-45.0); HEMOGLOBIN 10.2 gm/dL (12.0-16.0); MEAN CELL VOLUME 77.6 FL (83-96); MEAN CORPUSCULAR HEMOGLOBIN 24.4 PG (28-34); MEAN CORPUSCULAR HGB CONC 31.4 g/dL (30-36); MEAN PLATELET VOLUME 7.8 FL (6.5-11.5); RED BLOOD COUNT 4.18 X10e (3.90-5.30); RED CELL DISTRIBUTION WIDTH 19.1 % (11.0-15.5); WHITE BLOOD COUNT 15.1 X10e3 (4.0-10.5)
[2016-12-08 07:03] LABS: FERRITIN 85 ng/mL (11-307)
[2016-12-08 07:07] LABS: ALBUMIN SERUM 3.1 g/dL (3.5-5.0); BILIRUBIN,TOTAL 0.7 mg/dL (0.2-2.0); CALCIUM SERUM 9.3 mg/dL (8.4-10.2); CREATININE SERUM 0.5 mg/dL (0.6-1.4); GLOM FILT RATE Estimated 98.1 mL/min (>60); POTASSIUM 4.2 mmol/L (3.5-5.1); PROTEIN TOTAL SERUM 7.2 g/dL (6.0-8.3)
[2016-12-08] MEDS ORDERED: COMBIVENT U/D3 M2 INH (14:57)
[2016-12-08] MEDS ORDERED: PREDNISONE10 MG PO (14:59)
[2016-12-08] MEDS ORDERED: SYMBICORT INH (15:06)
[2016-12-31] MEDS ORDERED: DILAUDID4 M1 PO (13:54)
[2016-12-31] MEDS ORDERED: OXYCODONE HCL10 MG PO (13:55)
[2016-12-31] MEDS ORDERED: NOVOLOG100 U/ML SUBQ (13:57)
[2016-12-31] MEDS ORDERED: AMITRYPTYLINE PO (13:58)
[2016-12-31] MEDS ORDERED: BACLOFEN10 MG PO (14:03)
[2016-12-31] MEDS ORDERED: ZOFRAN PO (14:04)
[2017-01-01] MEDS ORDERED: PREDNISONE10 MG PO (10:08)
[2017-01-01] MEDS ORDERED: LIPITOR80 MG PO (10:09)
[2017-01-01] MEDS ORDERED: LACTULOSE10 GM/151 PO (10:09)
[2017-01-01] MEDS ORDERED: BENTYL10 MG PO (10:10)
[2017-01-01] MEDS ORDERED: DOCUSATE SODIU100 MG PO (10:12)
[2017-01-01] MEDS ORDERED: PRINIVIL5 MG PO (10:12)
[2017-01-01] MEDS ORDERED: MONTELUKAST SOD10 MG PO (10:13)
[2017-01-01] MEDS ORDERED: ASPIRIN81 M2 PO (10:13)
[2017-01-01] MEDS ORDERED: CLOPIDOGREL75 MG PO (10:13)
[2017-01-01] MEDS ORDERED: SYMBICORT INH (10:14)
[2017-01-01] MEDS ORDERED: PROAIR HFA8.5 GM INH (10:15)
== END 2016-12-08 16:43 | disposition home or self-care (01) | DRG 180 ==
LOC: CED 21:32 → CEDOF 12-07 03:40 → C2A 12-07 03:40 → CED 12-07 06:53 → CEDOF 12-07 06:53 → C2A 12-07 08:53 → CEDOF 12-07 08:53 → C2A 12-08 16:43
PROVIDERS: Emergency Medicine; Internal Medicine Hematology
DX: C34.91 Malignant neoplasm of unspecified part of right bronchus or lung (principal); J96.21 Acute and chronic respiratory failure with hypoxia; J44.1 Chronic obstructive pulmonary disease with (acute) exacerbation; E11.9 Type 2 diabetes mellitus without complications; E86.0 Dehydration; C34.92 Malignant neoplasm of unspecified part of left bronchus or lung; I10 Essential (primary) hypertension; F32.9 Major depressive disorder, single episode, unspecified; G47.33 Obstructive sleep apnea (adult) (pediatric); G89.29 Other chronic pain; I25.10 Atherosclerotic heart disease of native coronary artery without angina pectoris; E78.5 Hyperlipidemia, unspecified; K58.9 Irritable bowel syndrome, unspecified; I25.2 Old myocardial infarction; Z90.710 Acquired absence of both cervix and uterus; Z88.5 Allergy status to narcotic agent; Z88.1 Allergy status to other antibiotic agents; Z79.02 Long term (current) use of antithrombotics/antiplatelets; Z79.82 Long term (current) use of aspirin; Z79.52 Long term (current) use of systemic steroids; Z80.3 Family history of malignant neoplasm of breast; D64.9 Anemia, unspecified; K12.30 Oral mucositis (ulcerative), unspecified; Z87.891 Personal history of nicotine dependence
CPT/HCPCS: 71010; 71250; 80048; 80053; 80076; 82308; 82553; 82607; 82728; 82947; 83540; 83605; 83880; 84484; 85025; 85027; 85610; 85730; 87040; 87070; 87205; 93005; 94640; 94760; 99285; J1170; J1642; J1650; J1815; J2405; J2543; J2930; J3260; J3370

== ENCOUNTER 2017-01-01 22:24 | Inpatient (IN) | payer MEDICARE, OTHER ==
--- NOTE | ~2017-01-01 | CO ---
Unit #: [id number] #: [id number] Patient: EMILY LEDEZMA [id number] [address] [place], [place] [address] [id number] MR#: [id number] NAME: EMILY LEDEZMA ROOM: 567 Age: 71 Sex: F Admission Date: 01/02/2017 : 1945 Attending Physician: Joyce Hernandez M.D. Primary Care Physician: Jennifer Brady M.D. Consultation Date: 01/02/2017 CONSULTATION REPORT HISTORY OF PRESENT ILLNESS Ms. Ledezma is a 71-year-old female, who was just discharged on 01/01/2017, then returned to the ER tonight complaining of abdominal distention, abdominal pain, and chronic constipation. She was just in the hospital with an episode of exacerbation of her COPD, hemoptysis, dehydration, and constipation. By history, she has progressive stage IV non-small cell lung cancer and COPD. She is not been moving her bowels very well or consistently for some time according to the family and this most likely is narcotic induced as she is taking a large amount of medications that are constipation producing. She also appears to have some persistent hypokalemia. She has had no vomiting. No hematemesis, hematochezia, or melena. PAST MEDICAL HISTORY COPD secondary to tobacco abuse, stage IV non-small cell lung cancer with ongoing hemoptysis, obstructive sleep apnea not currently on CPAP, diabetes, coronary artery disease, hyperlipidemia, hypertension, irritable bowel syndrome, cirrhosis, degenerative joint disease. She has had a recent myocardial infarction, history of hysterectomy, appendectomy, and cervical disk surgery. ALLERGIES No allergies to medication. HOME MEDICATIONS Include Dilaudid 4 mg every 4 hours, oxycodone 10 mg every 4 hours, NovoLog, Elavil, baclofen, Zofran, prednisone, lactulose, Lipitor, Bentyl, Colace, Prinivil, montelukast, aspirin, Plavix, Symbicort, and ProAir. FAMILY HISTORY Breast cancer in mother and sister. SOCIAL HISTORY An [id number]-cvnz-yxnk smoking. Denies use of alcohol. She continues to smoke. 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 REVIEW OF SYSTEMS She has not had a bowel movement in several days. She denies any hematemesis, hematochezia, or melena. She has had no fever or chills. She has had weight loss. PHYSICAL EXAMINATION GENERAL: She is awake, alert, oriented in all spheres. VITAL SIGNS: Temperature is 97.8, pulse is 120, respirations 13 and Unit #: [id number] #: [id number] Patient: EMILY LEDEZMA unlabored, blood pressure 190/96. HEENT: Unremarkable. CARDIAC: Regular rhythm. LUNGS: Clear anteriorly, but shallow inspiration. ABDOMEN: She has marked abdominal distention. She guards throughout. There is no localized tenderness. RECTAL: There is only a small amount of stool in the rectal vault. It is grossly heme negative. EXTREMITIES: No edema. NEUROLOGIC: Grossly intact. DIAGNOSTIC STUDIES LABORATORY RESULTS: Basic metabolic panel is normal except for a potassium of 2.8, calcium is 9.0. Liver chemistries are normal. Albumin 3.4. Amylase and lipase are normal. INR 1.0. Hemoglobin 10.6, white count 21,400, platelets 314,000. Urinalysis is pending. IMAGING STUDIES: CT scan of the abdomen and pelvis shows a large amount of stool and gas throughout the colon. In the descending colon, there was an area that was suggestive of some shouldering, but there was no obstruction, no free air and no pneumatosis. ASSESSMENT AND PLAN A 71-year-old female with terminal non-small cell lung cancer, on multiple constipating medications. Has abdominal distention, constipation, and abdominal pain. Clinically, on current laboratory evaluation, she does not appear to have any ischemic changes. On CT scan, there was no obstruction, no free air and no pneumatosis. She does have a large stool burden. The question of shouldering indicating a mass in the descending colon. It is hard to evaluate given the large amount of stool in the colon. She would need further evaluation with endoscopy once we were able to decrease her stool burden. Her hypertension and tachycardia are secondary to her pain and I have suggested a fentanyl patch in addition to her IV Dilaudid. I am going to check a lactic acid, but again, I do not believe she has evidence of ischemic bowel at this time. Her elevated white count is most likely due to her bowel distention. I do not see any evidence of infection at this time. We plan to continue to hydrate the patient, replete her electrolytes, check her lactic acid level, and stimulate her bowel. I discussed with the patient and the family placing a Dobbhoff feeding tube and using GoLYTELY and Reglan as well as some suppositories to stimulate her bowel. Once we have had some clearance of her bowel, then further evaluation would be appropriate if the patient agrees to further workup. Dictated by... Juliano Ge/camilo TD: 01/04/2017 13:24 JOB #: [id number] Unit #: [id number] #: [id number] Patient: EMILY LEDEZMA Ronnell CONSULTATION REPORT Page 1 of 1 X Gary Lovett MD CONSULTATION REPORT
--- NOTE | ~2017-01-01 | DS ---
Unit #: [id number] #: [id number] Patient: EMILY LEDEZMA [id number] [place] [address] [id number] I MR#: [id number] NAME: EMILY LEDEZMA ROOM: 567 Age: 71 Sex: F Admission Date: 01/02/2017 : 1945 Discharge Date: Attending Physician: Joyce Hernandez M.D. Primary Care Physician: Jennifer Brady M.D. DISCHARGE SUMMARY DISCHARGE DIAGNOSES 1. Abdominal pain. 2. Severe opiate-induced constipation. 3. Mild colonic benign stricture, no obstruction in barium enema studies and no colon mass. 4. Stage 4 lung cancer, following Dr. Davidson, status post chemotherapy and radiation. 5. Non-ST myocardial infarction elevation in July 2016. 6. Hypertension, uncontrolled. 7. Diabetes mellitus type 2, uncontrolled. 8. Hyperlipidemia. 9. History of anemia, likely from chemotherapy, currently stable. 10. History of cirrhosis. 11. Irritable bowel syndrome. 12. Degenerative joint disease. 13. Diarrhea during the hospitalization course, likely from barium and also from Reglan which she received. 14. Yeast in urine. 15. Hypophosphatemia. 16. Hypokalemia. 17. Hyponatremia. 18. Mild protein malnutrition. CONSULTATIONS None. PROCEDURES None. DIAGNOSTIC STUDIES LABORATORY DATA: Glucose 90, sodium 134, potassium 2.9, creatinine 0.6, albumin 2.8, WBC 11.0, hemoglobin 8.4, platelets 205, magnesium 1.8, phosphorus 2.5. ALLERGIES Clindamycin. DISCHARGE MEDICATIONS 1. Albuterol one puff inhalation three times daily. 2. Symbicort 160 mcg, two puffs inhalation b.i.d. 3. Prednisone tapering dose. 4. Amitriptyline 5 mg at bedtime. 5. Zofran 4 mg q.8 p.r.n. nausea. 6. Lipitor 80 daily. Unit #: [id number] #: [id number] Patient: EMILY LEDEZMA 7. Colace 100 p.o. b.i.d. p.r.n. constipation. 8. Lisinopril 5 mg daily. 9. NovoLog 10 units subcu three times daily with meals. Hold if blood sugar less than 100. 10. Montelukast 10 mg p.o. daily. 11. Aspirin 81 daily. 12. Dilaudid 4 mg p.o. q.4. 13. Oxycodone 10 mg p.o. q.4 p.r.n. moderate pain. 14. Plavix 75 mg p.o. daily. 15. Potassium 40 mEq p.o. daily. HOSPITALIZATION COURSE This is a 71-year-old admitted because of abdominal pain and constipation. Initial concern was ischemic gut and small bowel obstruction. The patient had CT of the abdomen and pelvis which shows large colonic stool suspicious for underlying mass. The patient had later barium enema studies which did not show any mass. Mild colonic constriction present, likely benign stricture as per radiology reading. The patient did receive enema, GoLYTELY. Currently, she is tolerating diet okay, having bowel movements. The patient was seen by surgeon. They are okay for the patient to be discharged home. She will follow them as an outpatient. Severe constipation, likely opiate induced, currently having diarrhea: Patient will continue with Colace. Stage 4 lung cancer with chemotherapy and radiation therapy with associated chronic anemia: The patient will follow Dr. Davidson as an outpatient. Severe hypokalemia, replace with potassium per protocol: I gave prescription for potassium to take home. Discharge home. Follow with family physician in one week time. Follow with Dr. Davidson in one week time. Follow with Dr. Moura in two weeks time for possible benign stricture in her barium enema studies. Discussed with daughter, okay to take her home. I will arrange home health if needed. Discharge time taken is 32 minutes. Dictated by... Juliano Garcia TD: 01/08/2017 11:43 JOB #: [id number] Unit #: [id number] #: [id number] Patient: EMILY LEDEZMA DISCHARGE SUMMARY Page 1 of 1 X Joyce Hernandez MD DISCHARGE SUMMARY
--- NOTE | ~2017-01-01 | CO ---
Unit #: [id number] #: [id number] Patient: EMILY LEDEZMA [id number] [place] [id number] [facility]. [place], [place] [address] [id number] I MR#: [id number] NAME: EMILY LEDEZMA ROOM: [facility] Age: 71 Sex: F Admission Date: 01/02/2017 : 1945 Attending Physician: Joyce Hernandez M.D. Primary Care Physician: Jennifer Brady M.D. CONSULTATION REPORT HISTORY OF PRESENT ILLNESS Ms. Ledezma is a 71-year-old white female, who I just discharged from the hospital yesterday. She was felt to have narcotic-induced constipation. She received an enema with good return of stool. She was able to eat. She was doing well. She was to follow up with Dr. Davidson for chemotherapy yesterday, which she did receive chemotherapy, but later in the afternoon developed more crampy abdominal pain and presented back to the emergency room. CT scan apparently showed no free air, it did show large stool burden in the colon, and there was suggestion of a mass but apparently she has had a colonoscopy in 03/2016, which only showed a polyp which was removed. Psychiatric is seeing. H[facility] admitted. We were asked to see. She has had no change in her shortness of breath. Her lab work is significant for potassium of 3.6, Mag level of 1.4, lactic acid level of 1.3. White blood cell count was 21,400, on admission, hematocrit 34.4. White count was up from 13.1, but she did receive steroids in the hospital. She had not had a fever or chills at home. Has had no purulent sputum. PAST MEDICAL HISTORY History of stage IV non-small cell lung cancer, progressive disease; COPD; recent myocardial infarction; history of congestive heart failure; hypertension; diabetes. PAST SURGICAL HISTORY Hysterectomy, appendectomy, neck surgery. ALLERGIES No known allergies. SOCIAL HISTORY Eighty pack year smoker. No alcohol. No illicit drugs. Continues to smoke. 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 FAMILY HISTORY Sister of breast cancer. Mother, breast cancer. CURRENT MEDICATIONS Included albuterol, Symbicort, baclofen, Plavix, oxycodone, hydromorphone, aspirin, Singulair, NovoLog, lisinopril, Colace, prednisone tapering dose 10 mg daily, lactulose. REVIEW OF SYSTEMS Ten point system otherwise negative. Unit #: [id number] #: [id number] Patient: EMILY LEDEZMA PHYSICAL EXAMINATION GENERAL: White female, in moderate distress. VITAL SIGNS: Blood pressure 115/83, pulse 128, respiratory rate 19, afebrile. HEENT: Normocephalic and atraumatic. Pupils are equal, round, and reactive. Sclerae nonicteric. Nasal passages patent. Posterior pharynx, clear. Mucous membranes moist. NECK: Supple. Trachea midline. LUNGS: Reveal some mild expiratory wheeze with decreased breath sounds. CARDIAC: Tachycardic, regular rate and rhythm. Could not appreciate murmur, rub, or gallop. ABDOMEN: Distended, minimal bowel sounds. No organomegaly. EXTREMITIES: Without clubbing, cyanosis, or edema. NEUROLOGIC: Awake, alert, and oriented x3. Cranial nerves intact. Muscle strength symmetric bilaterally. Affect calm. DIAGNOSTIC STUDIES LABORATORY RESULTS: Reviewed. IMPRESSION 1. Abdominal pain, likely secondary to narcotic-induced constipation, rule out ischemic bowel or obstruction. [facility] is following. 2. Chronic obstructive pulmonary disease, stable. 3. Stage IV non-small cell lung cancer. 4. History of hemoptysis, resolved. PLAN We will provide stress steroids. Continue inhaled bronchodilators and inhaled corticosteroids. We will also check phosphorus level. We will replace potassium and magnesium. Further recommendations pending this. Dictated by... Samir Harding M.D. ARTURO/camilo TD: 01/02/2017 22:56 JOB #: [id number] CONSULTATION REPORT Page 1 of 1 X Samir Harding MD X CONSULTATION REPORT
--- NOTE | ~2017-01-01 | CR7 ---
[facility] A Service of [facility] RADIOLOGY TEXT RESULTS PATIENT: EMILY LEDEZMA LOCATION: [address] : [birth year] UNIT #: [id number] AGE: [address]: Joyce Hernandez MD SEX: F ORDER DR: [id number] [facility] [address] [facility] [place], [place] [address] [id number] I MR#: [id number] Acc #: [id number] NAME: EMILY LEDEZMA : 1945 SEX: F STUDY DATE/TIME: 01/02/2017 9:19 UNIT: [facility] ROOM: [facility] STUDY DESCRIPTION: CR Abdomen Single AP View Attending Physician: Joyce Hernandez M.D. Ordering Physician: Joyce Hernandez M.D. Primary Care Physician: Jennifer Brady M.D. MEDICAL IMAGING REPORT This report is preliminary unless electronic signature is present EXAM KUB 01/02. INDICATIONS Feeding tube placement today. FINDINGS Supine view of the abdomen was obtained. Tip of a flexible feeding tube is present in the body of the stomach. The bowel gas pattern is not significantly changed from the CT scan performed earlier today. Dictated by... Gary Mark Jr., M.D. THIS IS AN ELECTRONICALLY VERIFIED REPORT Gary Mark Jr., M.D. at 01/02/2017 3:38 PM KOLTON/trang TD: 01/02/2017 14:09 JOB #: [id number] MEDICAL IMAGING REPORT Page 1 of 1 COPY
--- NOTE | ~2017-01-01 | CO ---
Unit #: [id number] #: [id number] Patient: EMILY LEDEZMA [id number] [address] [place], [place] [address] [id number] I MR#: [id number] NAME: EMILY LEDEZMA ROOM: [facility] Age: 71 Sex: F Admission Date: 01/02/2017 : 1945 Attending Physician: Joyce Hernandez M.D. Primary Care Physician: Jennifer Brady M.D. CONSULTATION REPORT CHIEF COMPLAINT Nonsmall cell lung cancer, squamous cell stage IV, received palliative chemoradiation, progressed on Opdivo and Tecentriq, now on Keytruda, recent AL, abdominal distention. HISTORY OF PRESENT ILLNESS This is a 70-year-old female who started smoking at the age of 12. She has an 80 pack-year history of smoking. Recently, patient had multiple imaging studies. Patient has multiple lesions on the right side. She was diagnosed with squamous cell carcinoma. She first received palliative chemoradiation. There was mixed response. She received Opdivo and progressed. She received Tecentriq and progressed. Patient has had multiple hospitalizations with atypical chest pain and had a recent AL. Patient was recently discharged from the hospital. Patient came with constipation and worsening abdominal distention. Patient had a CT of the abdomen and pelvis which showed significant stool. There is a suspicious lesion in the colon. She is receiving GoLYTELY, had a bowel movement and feeling better. REVIEW OF SYSTEMS CONSTITUTIONAL: No fever, no chills, no sweats, no weight loss. EYES: No visual symptoms. EARS, NOSE AND THROAT: There is no runny nose or sore throat or difficulty hearing. CARDIOVASCULAR: No chest pain. No shortness of breath. No palpitations. No orthopnea. No PND. RESPIRATORY: No cough. No wheezing. No hemoptysis. GASTROINTESTINAL: As mentioned above. GENITOURINARY: No urinary frequency, hesitancy or urgency. No blood in the urine. MUSCULOSKELETAL: No muscle or joint pain. NEUROLOGIC: No headache. No numbness or tingling. No weakness. No seizure. PSYCHIATRIC: No anxiety, depression or mood disturbance. ENDOCRINE: No excessive urination or thirst. DERMATOLOGIC: No rash or change in the skin. ALLERGIC/IMMUNOLOGIC: No symptoms. HEMATOLOGIC/LYMPHATIC: Denies any symptoms. PAST MEDICAL HISTORY Unit #: [id number] #: [id number] Patient: EMILY LEDEZMA 1. Nonsmall cell lung cancer, squamous cell stage IV, with progressive disease. 2. Chronic obstructive pulmonary disease. 3. Recent myocardial infarction. 4. Congestive heart failure. 5. Hypertension. 6. Diabetes. PAST SURGICAL HISTORY 1. Extensive neck surgery for degenerative joint disease. 2. Hysterectomy. 3. Appendectomy. SOCIAL HISTORY Patient has an 80 pack-year history of smoking. Denies alcohol. 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 FAMILY HISTORY Sister had breast cancer at the age of 70. Mother had breast cancer at age 62. ALLERGIES No known allergies. CURRENT MEDICATIONS 1. Solu-Medrol. 2. Colace. 3. MiraLax. 4. Reglan. 5. Zosyn. PHYSICAL EXAMINATION VITAL SIGNS: Afebrile, pulse 104, respiratory rate 15, O2 saturation on 2 liters 98%, and blood pressure 164/94. GENERAL: Patient is comfortable. ECOG is 0. The patient is pleasant. HEENT: Moist mucosa. Pupils equally reactive to light. Extraocular muscles intact. Sclerae anicteric. No obvious bleeding from nasal mucosa or oral mucosa. Scalp normal. Hearing normal. NECK: No JVD. No lymphadenopathy. LYMPHATIC/HEMATOLOGIC: There is no palpable adenopathy in the neck, axilla or inguinal area. CARDIOVASCULAR: S1, S2. Regular rate and rhythm. No S3 or S4. RESPIRATORY: Bilateral wheeze. ABDOMEN: It is distended. EXTREMITIES: There is no clubbing, no cyanosis, no edema. No varicose veins. NEUROLOGICAL: Patient is alert, awake and oriented x3. Cranial nerves II-XII are intact. Sensory grossly intact. Motor is 4/5 in all four extremities. Gait is normal. Station is normal. Language is normal. Memory is normal. DTRs +2 in all four extremities. MUSCULOSKELETAL: No joint swelling. No bony tenderness. No muscle tenderness. SKIN: No petechiae, no rash, no ecchymosis. PSYCHIATRIC: No anxiety. No delusions or hallucinations. There is no agitation. Eye contact is normal. Affect is appropriate. There is no flight of ideas. DIAGNOSTIC STUDIES Unit #: [id number] #: [id number] Patient: EMILY LEDEZMA LABORATORY: WBC 19.5, hemoglobin 9.3, and platelets 241,000. Creatinine is 0.4. LFTs are normal. Transferrin saturation is 4%. IMAGING: Patient had a CT of the abdomen and pelvis. I reviewed. There are bilateral lung base nodules. Appears to be similar to the CT done on December 07, 2016. There is large colonic stool and gas burden with apparent focal transition and shouldering in the descending colon. This raises suspicion of underlying mass. Small amount of ascites. ASSESSMENT AND PLAN This is a 70-year-old female who has the following active issues: 1. Nonsmall cell lung cancer, squamous cell stage IV. She received palliative chemoradiation, chemotherapy with Carbo/Taxol. She received Opdivo, and she received Tecentriq, all failed. At present, she is taking Keytruda. I hope it works. 2. Gastrointestinal. Patient has some focal transition in the descending colon that could be a mass. However, she had a colonoscopy nine months ago that was normal. We are treating most likely as severe constipation secondary to opiates. She is getting GoLYTELY, and she is going for colonoscopy. 3. Pneumonia. It has resolved. 4. Depression. Continue Zoloft. 5. Anemia and iron study is low. After a couple of days, once her acute condition resolves, we will give her intravenous iron. 6. Mucositis. Continue Letty's Magic Potion. DISCUSSION I had an extensive discussion with patient and her daughter and granddaughter. At present, prognosis is guarded. Once her GI improves, then we will discuss again prognosis. Dictated by... Ko Davidson M.D. PEDRO/nicole TD: 01/03/2017 22:04 JOB #: [id number] CONSULTATION REPORT Page 1 of 1 X Ko Davidson MD CONSULTATION REPORT
--- NOTE | ~2017-01-01 | CR42 ---
[facility] A Service of [facility] RADIOLOGY TEXT RESULTS PATIENT: EMILY LEDEZMA LOCATION: [facility] 567-01 : [birth year] UNIT #: [id number] AGE: [address]: Joyce Hernandez MD SEX: F ORDER DR: [id number] [facility] [address] [facility]. [place], [place] [address] [id number] I MR#: [id number] Acc #: [id number] NAME: EMILY LEDEZMA : 1945 SEX: F STUDY DATE/TIME: 01/05/2017 10:32 UNIT: [facility] ROOM: [facility] STUDY DESCRIPTION: CR Barium Enema Attending Physician: Joyce Hernandez M.D. Ordering Physician: Joyce Hernandez M.D. Primary Care Physician: Jennifer Brady M.D. MEDICAL IMAGING REPORT This report is preliminary unless electronic signature is present EXAM Single contrast barium enema HISTORY Ms. Ledezma is a 71 -year-old woman with a history of chronic constipation. She also has a history of metastatic lung cancer. She underwent a CT scan of the abdomen and pelvis on January 02, 2017 which showed extensive fecal burden throughout the colon with concern for possible mass within the descending colon. The patient was tipped by the diagnostic radiology interventional physician. Initial gasoline finisher image showed gaseous distension of the colon and Gastrografin was administered via the rectal tube. Patient's colon was noted to be very dilated. There is an area of narrowing involving the sigmoid colon. However, it appears to be smoothly marginated which would argue against malignant stricture. The remainder of the colon again appeared dilated but no obvious stricture was seen. Total fluoroscopy time was 3.1 minutes and a total of 12 fluoroscopic images were obtained. Patient also had 6 overhead images obtained as well. IMPRESSION Patient does have some mild narrowing involving the sigmoid colon. Clinical significance is uncertain. Margins certainly appear very smooth which would suggest that this may reflect a benign stricture. No convincing evidence of malignant stricture was seen. Contrasted passed this area of narrowing into remainder of the colon. Colon itself appears diffusely dilated. STAT * RESULT [facility] A Service of [facility] RADIOLOGY TEXT RESULTS PATIENT: EMILY LEDEZMA LOCATION: [place] [address] : [birth year] UNIT #: [id number] AGE: [address]: Joyce Hernandez MD SEX: F ORDER DR: Dictated by... Julee Severino M.D. THIS IS AN ELECTRONICALLY VERIFIED REPORT Julee Severino M.D. at 01/08/2017 5:21 PM AFF/aa TD: 01/08/2017 10:59 JOB #: [id number] MEDICAL IMAGING REPORT Page 1 of 1 COPY
--- NOTE | ~2017-01-01 | OR ---
Unit #: [id number] #: [id number] Patient: EMILY LEDEZMA [id number] [address] [place], [place] [address] [id number] I MR#: [id number] NAME: EMILY LEDEZMA ROOM: 567 Date of Procedure: 01/04/2017 Admission Date: 01/02/2017 Surgeon: Keenan Bailey M.D. : 1945 Attending Physician: Joyce Hernandez M.D. Primary Care Physician: Jennifer Brady M.D. OPERATIVE REPORT PREOPERATIVE DIAGNOSIS Possible colonic mass, sigmoid colon. POSTOPERATIVE DIAGNOSIS Possible colonic mass, sigmoid colon. PROCEDURE PERFORMED Attempted colonoscopy to 40 cm. ANESTHESIA Monitored anesthesia care. FINDINGS The patient's colon was normal up to 40 cm, however, there was a sharp turn and as a result, we were unable to pass beyond this point. No neoplasm was seen. SPECIMENS None. COMPLICATIONS None apparent. CONDITION The patient tolerated the procedure well. INDICATIONS FOR PROCEDURE The patient is a 71-year-old white female, who has a history of lung cancer, who had significant ileus and colonic distention. She had a CT scan, which revealed a possible neoplasm in the sigmoid colon. She presents at this time for evaluation by colonoscopy. DESCRIPTION OF PROCEDURE After obtaining informed consent, the patient was brought to the endoscopy suite and after adequate monitored anesthesia care, had the colonoscope placed through the anus and slowly advanced with the lumen always in view. We were able to pass it to approximately 40 cm without difficulty. However, at 40 cm, there was a very sharp turn. No neoplasm was seen. Despite multiple body position changes and manipulations of the scope, we were unable to pass beyond this point safely. As a result, the colonoscope was slowly pulled back. The colon was circumferentially visualized. No abnormalities were seen. On retroflexion in the rectum to Unit #: [id number] #: [id number] Patient: EMILY LEDEZMA the anorectal junction, no obvious abnormalities were seen. The scope was removed without difficulty. The patient tolerated the procedure well and went from the endoscopy suite to recovery area in stable condition. RECOMMENDATIONS Barium enema in the a.m. Dictated by... Keenan Bailey M.D. DENYG/modl TD: 01/05/2017 02:32 JOB #: [id number] CC: [facility] oK Davidson M.D. OPERATIVE REPORT Page 1 of 1 X Keenan Bailey MD PROCEDURE OPERATIVE NOTE
--- NOTE | ~2017-01-01 | CT2 ---
[facility] A Service [facility] RADIOLOGY TEXT RESULTS PATIENT: EMILY LEDEZMA LOCATION: [facility] : [birth year] UNIT #: [id number] AGE: [address]: Joyce Hernandez MD SEX: F ORDER DR: [id number] [facility] [address] [facility] [place], [place] [address] [id number] I MR#: [id number] Acc #: [id number] NAME: EMILY LEDEZMA : 1945 SEX: F STUDY DATE/TIME: 01/02/2017 1:58 UNIT: [facility] ROOM: [facility] STUDY DESCRIPTION: CT Abd and Pelv W Cont Attending Physician: Joyce Hernandez M.D. Ordering Physician: Van Ferraro Aprn Primary Care Physician: Jennifer Brady M.D. MEDICAL IMAGING REPORT This report is preliminary unless electronic signature is present EXAM CT abdomen and pelvis with contrast INDICATION Lower abdominal pain and nausea today. PROCEDURE Contrast-enhanced CT of the abdomen and pelvis. This CT examination was performed with one or more of the following radiation dose reduction techniques: automatic exposure control, adjustment of mA and/or kV according to patient size, and iterative reconstruction. COMPARISON 10/12/2016. FINDINGS Bilateral lung base nodules as well as a large right infrahilar mass. Appearance is similar to the prior. ABDOMEN WITH CONTRAST: Right pleural effusion. The liver, spleen, adrenal glands, pancreas, gallbladder unremarkable. Large colonic stool and gas burden. There is an apparent transition point with shouldering in the descending colon. The small bowel loops are nondilated. There is a small amount of ascites in the abdomen. No abdominal adenopathy. 2 cm cyst in the left kidney. PELVIS WITHOUT CONTRAST: Previous hysterectomy. No pelvic mass. No [facility] A Service [facility] RADIOLOGY TEXT RESULTS PATIENT: EMILY LEDEZMA LOCATION: [address] : [birth year] UNIT #: [id number] AGE: [address]: Joyce Hernandez MD SEX: F ORDER DR: aggressive appearing bone lesion. IMPRESSION 1. Bilateral lung base pulmonary nodules and a large right infrahilar mass as well as a fairly large right pleural effusion. Appearance is very similar to a chest CT on 12/07/2016. 2. Large colonic stool and gas burden with apparent focal transition and shouldering in the descending colon. This raises suspicion for an underlying mass. 3. Small amount of ascites in the abdomen. Dictated by... Luis F Malik M.D. THIS IS AN ELECTRONICALLY VERIFIED REPORT Luis F Malik M.D. at 01/02/2017 9:52 PM RADHA/eliazar TD: 01/02/2017 12:13 JOB #: [id number] MEDICAL IMAGING REPORT Page 1 of 1 COPY
--- NOTE | ~2017-01-01 | HP ---
Unit #: [id number] #: [id number] Patient: EMILY LEDEZMA [id number] [address] [place], [place] [address] [id number] I MR#: [id number] NAME: EMILY LEDEZMA ROOM: 42370 Age: 71 Sex: F Admission Date: 01/02/2017 : 1945 Attending Physician: Ana Paula Reeder M.D. Primary Care Physician: Jennifer Brady M.D. HISTORY AND PHYSICAL REVISED REPORT CHIEF COMPLAINT Abdominal pain with concerns for ischemic gut. HISTORY This 71-year-old female with stage 4 squamous cell CA of the lung, CAD, AODM, is admitted for abdominal pain. The patient was recently admitted to this facility 12/31 through 01/01/2017, for dehydration, weakness, and narcotic-induced constipation. Was given an enema with improvement of her severe constipation. Received chemotherapy yesterday and was discharged to home. After her discharge, she began to develop severe diffuse abdominal pain, perhaps worse in the lower abdomen, associated with nausea and vomiting. Is not able to pass flatus, and has not had really much in terms of further stool despite lactulose and a fleet's enema. Began to feel very hot and cold. She presented to this emergency department late last evening where she had significant abdominal tenderness on exam and is tachycardic. Despite Dilaudid, continues with severe pain, nausea. Was bolused with a liter of saline. CT scan shows a large amount of colonic stool and gas with suspicion for possible underlying mass in the descending colon and small ascites. However, the patient underwent a colonoscopy 03/2016 which revealed internal hemorrhoids and a rectal polyp which was snared. Of note, her white blood count increased from 13 yesterday to 21.4 last night. A call was also made to the surgical service given that the patient's pain was out of proportion to her findings, and they will be seeing the patient early this morning and ask the medicine admit. PAST MEDICAL HISTORY 1. Stage 4 squamous cell CA, status post chemotherapy and radiation, followed by Dr. Ko Davidson. Patient last received chemotherapy yesterday. 2. Non-ST elevation OH 07/2016. The patient is status post PCI and stent x2, ejection fraction is 55%. 3. Hypertension. 4. AODM. 5. Hyperlipidemia. 6. History of anemia, followed by Dr. Davidson. 7. History of cirrhosis, details are unknown. 8. Irritable bowel syndrome. 9. 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 10. C-spine surgery x2. 11. Total abdominal hysterectomy. 12. Appendectomy. Unit #: [id number] #: [id number] Patient: EMILY LEDEZMA 13. Liver biopsy. 14. Hernia repair. 15. Bladder and bowel repair. 16. EGD and colonoscopy 03/2016 revealing diffuse gastritis, internal hemorrhoids, rectal polyp which was snared. ALLERGIES Codeine and clindamycin. HOME MEDICATIONS 1. Dilaudid 4 mg q.4 hours. 2. Oxycodone 10 mg q.4 hours. 3. NovoLog 10 units t.i.d. with meals. 4. Elavil 5 mg q. h.s. 5. Baclofen 10 mg b.i.d. 6. Zofran p.r.n. 7. Prednisone 10 mg taper. 8. Lactulose 30 mL q.6 hours as needed. 9. Lipitor 80 mg q. h.s. 10. Bentyl, one to two capsules t.i.d. 11. Colace 100 mg daily as needed. 12. Prinivil 5 mg q. h.s. 13. Singulair 10 mg daily. 14. Aspirin 81 mg daily. 15. Plavix 75 mg daily. 16. Symbicort 160/4.5 two puffs b.i.d. 17. ProAir as needed. FAMILY HISTORY Breast cancer. SOCIAL HISTORY The patient lives with her daughter who is her healthcare surrogate. She does not have a Living Will. She stopped smoking in 2002, does not drink alcohol. REVIEW OF SYSTEMS Notable for abdominal pain, nausea, vomiting, constipation, lung cancer, CAD, diabetes, cirrhosis, COPD, above mentioned surgeries, DJD, hypertension. All other systems were reviewed and are otherwise negative. PHYSICAL EXAMINATION GENERAL APPEARANCE: Ill appearing, uncomfortable, pale 71-year-old female. VITAL SIGNS: Temperature 97.8, pulse initially 123, respirations 19, blood pressure 186/103. O2 saturation 97% on 3 L of oxygen. HEENT: Eyes PERRLA. Extraocular muscles are intact. Pharynx is benign. NECK: Supple without adenopathy or thyromegaly. CHEST: Diminished breath sounds but otherwise clear. CARDIAC: Tachy S1 and S2 without murmur. ABDOMEN: No bowel sounds are present, abdomen is distended, and diffusely tender with guarding not with definite rebound. The patient seems to be most tender in right greater than left lower quadrants. RECTAL EXAMINATION: Heme negative (1) . EXTREMITIES: Without clubbing, cyanosis or edema. NEUROLOGIC: The patient is awake, alert, oriented. Cranial nerves are intact. Equal strength throughout. Unit #: [id number] #: [id number] Patient: EMILY LEDEZMA DIAGNOSTIC STUDIES LABORATORY: Hematocrit 34.4, white blood count 21.4, normal platelet count. SMA-12 - glucose 184, potassium 2.8, chloride 99, albumin is 3.4, alkaline phos. 96, normal lipase. Urinalysis two days ago is negative. IMAGING: CT scan - small amount of ascites, large amount of colonic stool and gas, possible underlying mass of descending colon. ASSESSMENT 1. Abdominal pain, worrisome for ischemic gut. 2. Stage 4 squamous cell lung cancer: Patient received chemotherapy yesterday. 3. Coronary artery disease, status post percutaneous coronary intervention and stent with ejection fraction of 55%. 4. Adult onset diabetes mellitus. 5. History of cirrhosis, details are unknown. 6. Hypokalemia. 7. Chronic obstructive pulmonary disease. PLANS 1. IV Zosyn. 2. IV fluids, pain control and nausea control. I suspect patient will require higher doses of Dilaudid as she takes p.o. Dilaudid and oxycodone at home. 3. Surgical service to see early this morning. The case was discussed with them. 4. Recheck labs this morning, check lactic acid level. 5. Replace potassium, check magnesium. 6. Core Cutter consult. 7. The patient is a full code. 8. rn long term care prognosis is poor. Critical care time spent evaluating this patient was 35 minutes. Dictated by Juliano Carrillo/df TD: 01/02/2017 06:23 JOB #: [id number] CC: Ko Davidson M.D. Unit #: [id number] #: [id number] Patient: EMILY LEDEZMA HISTORY AND PHYSICAL Page 1 of 1 X Ana Paula Reeder MD HISTORY AND PHYSICAL
[~2017-01-01 22:24] MED LIST changes: +CLOPIDOGREL BIS75 MG PO; +COMBIVENT U/D3 M2 INH; +DICYCLOMINE HCL10 MG PO; +DILAUDID4 M1 PO; +DOCUSATE SODIU100 MG PO; +LACTULOSE10 GM/151 PO; +LIPITOR80 MG PO; +NOVOLOG100 U/ML SUBQ; +PREDNISONE10 MG PO; +PRINIVIL5 MG PO
[2017-01-02 00:29] LABS: BASOPHIL% 0.1 % (0-2.5); EOSINOPHIL# 0.1 X10e3 (0-0.7); EOSINOPHIL% 0.3 % (0.0-7.0); HEMATOCRIT 34.4 % (35.0-45.0); HEMOGLOBIN 10.6 gm/dL (12.0-16.0); LYMPHOCYTE# 0.4 X10e3 (1.0-3.5); LYMPHOCYTE% 2.1 % (17.0-45.0); MEAN CELL VOLUME 74.6 FL (83-96); MEAN CORPUSCULAR HGB CONC 30.8 g/dL (30-36); MEAN PLATELET VOLUME 7.7 FL (6.5-11.5); MONOCYTE% 4.7 % (3.0-12.0); NEUTROPHIL# 19.9 X10e3 (1.5-7.1); NEUTROPHIL% 92.8 % (40-75); PLATELET COUNT 314 X10e3 (140-420); RED BLOOD COUNT 4.61 X10e (3.90-5.30); RED CELL DISTRIBUTION WIDTH 19.8 % (11.0-15.5)
[2017-01-02 00:31] LABS: DIFF IND YES; WHITE BLOOD COUNT 21.4 X10e3 (4.0-10.5)
[2017-01-02 00:51] LABS: ALBUMIN SERUM 3.4 g/dL (3.5-5.0); BILIRUBIN, DIRECT 0.1 mg/dL (0.0-0.2); BILIRUBIN,INDIRECT 0.1 mg/dL (0.0-0.9); BILIRUBIN,TOTAL 0.2 mg/dL (0.2-2.0); BUN/CREATININE RATIO 22.5; CREATININE SERUM 0.4 mg/dL (0.6-1.4); GLOM FILT RATE Estimated 104.8 mL/min (>60); PROTEIN TOTAL SERUM 7.7 g/dL (6.0-8.3)
[2017-01-02 00:53] LABS: POTASSIUM 2.8 mmol/L (3.5-5.1)
[2017-01-02 00:56] LABS: MICROCYTOSIS MOD; PLATELET ESTIMATE NORMAL (NORMAL)
[2017-01-02 00:57] LABS: HYPOCHROMIA SL
[2017-01-02 07:07] LABS: BASOPHIL# 0.1 X10e3 (0-0.3); BASOPHIL% 0.3 % (0-2.5); EOSINOPHIL# 0.1 X10e3 (0-0.7); EOSINOPHIL% 0.3 % (0.0-7.0); HEMATOCRIT 33.5 % (35.0-45.0); HEMOGLOBIN 10.3 gm/dL (12.0-16.0); LYMPHOCYTE# 0.3 X10e3 (1.0-3.5); LYMPHOCYTE% 1.5 % (17.0-45.0); MEAN CELL VOLUME 74.5 FL (83-96); MEAN CORPUSCULAR HEMOGLOBIN 22.8 PG (28-34); MEAN CORPUSCULAR HGB CONC 30.6 g/dL (30-36); MEAN PLATELET VOLUME 6.9 FL (6.5-11.5); MONOCYTE# 0.6 X10e3 (0-1.0); MONOCYTE% 2.4 % (3.0-12.0); NEUTROPHIL# 21.8 X10e3 (1.5-7.1); NEUTROPHIL% 95.5 % (40-75); PLATELET COUNT 282 X10e3 (140-420); RED CELL DISTRIBUTION WIDTH 19.8 % (11.0-15.5); WHITE BLOOD COUNT 22.8 X10e3 (4.0-10.5)
[2017-01-02 07:08] LABS: DIFF IND NO
[2017-01-02 07:24] LABS: CALCIUM SERUM 8.5 mg/dL (8.4-10.2); CREATININE SERUM 0.4 mg/dL (0.6-1.4); GLOM FILT RATE Estimated 104.8 mL/min (>60); MAGNESIUM 1.4 mg/dL (1.6-3.0); POTASSIUM 3.6 mmol/L (3.5-5.1)
[2017-01-02 08:07] LABS: URINE SOURCE CLEAN CATCH
[2017-01-02 08:12] LABS: URINE APPEARANCE CLEAR; URINE BILIRUBIN NEG (NEG); URINE BLOOD NEG (NEG); URINE COLOR YELLOW; URINE GLUCOSE 100 MG/DL (NEG); URINE KETONE NEG (NEG); URINE LEUKOCYTE ESTERASE NEG (NEG); URINE NITRATE NEG (NEG); URINE PH 6.5 (5-8); URINE PROTEIN NEG (NEG); URINE SPECIFIC GRAVITY 1.045 (1.003-1.035); URINE UROBILINOGEN 0.2 MG/DL (NEG)
[2017-01-02 08:16] LABS: CULTURE INDICATED? NO
[2017-01-02 20:10] LABS: POTASSIUM 4.1 mmol/L (3.5-5.1)
[2017-01-03 05:24] LABS: HEMATOCRIT 30.1 % (35.0-45.0); HEMOGLOBIN 9.3 gm/dL (12.0-16.0); LYMPHOCYTE# 0.3 X10e3 (1.0-3.5); LYMPHOCYTE% 1.8 % (17.0-45.0); MEAN CELL VOLUME 74.9 FL (83-96); MEAN CORPUSCULAR HEMOGLOBIN 23.2 PG (28-34); MEAN PLATELET VOLUME 7.4 FL (6.5-11.5); MONOCYTE# 0.4 X10e3 (0-1.0); MONOCYTE% 2.2 % (3.0-12.0); NEUTROPHIL# 18.7 X10e3 (1.5-7.1); PLATELET COUNT 241 X10e3 (140-420); RED BLOOD COUNT 4.02 X10e (3.90-5.30); RED CELL DISTRIBUTION WIDTH 19.9 % (11.0-15.5); WHITE BLOOD COUNT 19.5 X10e3 (4.0-10.5)
[2017-01-03 05:27] LABS: DIFF IND NO
[2017-01-03 06:25] LABS: FERRITIN 76 ng/mL (11-307)
[2017-01-03 07:12] LABS: ALBUMIN SERUM 2.4 g/dL (3.5-5.0); BUN/CREATININE RATIO 12.5; CALCIUM SERUM 8.2 mg/dL (8.4-10.2); CREATININE SERUM 0.4 mg/dL (0.6-1.4); GLOM FILT RATE Estimated 104.8 mL/min (>60); MAGNESIUM 1.8 mg/dL (1.6-3.0); POTASSIUM 3.9 mmol/L (3.5-5.1); PROTEIN TOTAL SERUM 5.6 g/dL (6.0-8.3)
[2017-01-03 07:14] LABS: BILIRUBIN,TOTAL 0.1 mg/dL (0.2-2.0)
[2017-01-04 00:08] LABS: URINE SOURCE CLEAN CATCH
[2017-01-04 00:12] LABS: URINE APPEARANCE CLOUDY; URINE BILIRUBIN NEG (NEG); URINE BLOOD 1+ (NEG); URINE COLOR YELLOW; URINE GLUCOSE 250 MG/DL (NEG); URINE KETONE NEG (NEG); URINE LEUKOCYTE ESTERASE TRACE (NEG); URINE NITRATE NEG (NEG); URINE PH 8.5 (5-8); URINE PROTEIN NEG (NEG); URINE SPECIFIC GRAVITY 1.009 (1.003-1.035); URINE UROBILINOGEN 0.2 MG/DL (NEG)
[2017-01-04 00:15] LABS: U HYALINE CASTS AUWI 0-2 /[LPF]; URINE BACTERIA AUWI NEG (NEGATIVE); URINE SQUAMOUS EPITHELIAL CELL NONE SEEN /[HPF]
[2017-01-04 00:17] LABS: CULTURE INDICATED? NO
[2017-01-04 04:47] LABS: BASOPHIL% 0.1 % (0-2.5); EOSINOPHIL% 0.1 % (0.0-7.0); HEMATOCRIT 26.3 % (35.0-45.0); HEMOGLOBIN 8.2 gm/dL (12.0-16.0); LYMPHOCYTE# 0.3 X10e3 (1.0-3.5); LYMPHOCYTE% 1.8 % (17.0-45.0); MEAN CELL VOLUME 73.7 FL (83-96); MEAN CORPUSCULAR HEMOGLOBIN 22.8 PG (28-34); MEAN PLATELET VOLUME 7.5 FL (6.5-11.5); MONOCYTE# 0.8 X10e3 (0-1.0); MONOCYTE% 4.8 % (3.0-12.0); NEUTROPHIL# 15.6 X10e3 (1.5-7.1); NEUTROPHIL% 93.2 % (40-75); PLATELET COUNT 217 X10e3 (140-420); RED BLOOD COUNT 3.58 X10e (3.90-5.30); RED CELL DISTRIBUTION WIDTH 19.7 % (11.0-15.5); WHITE BLOOD COUNT 16.8 X10e3 (4.0-10.5)
[2017-01-04 04:48] LABS: DIFF IND NO
[2017-01-04 04:59] LABS: ALBUMIN SERUM 2.4 g/dL (3.5-5.0); ALKALINE PHOSPHATASE 82 U/L (32-92); ALT (SGPT) 14 U/L (10-40); AST (SGOT) 17 U/L (10-42); BILIRUBIN,TOTAL 0.5 mg/dL (0.2-2.0); CARBON DIOXIDE 31 mmol/L (22-31); CHLORIDE 98 mmol/L (100-111); CREATININE SERUM 0.4 mg/dL (0.6-1.4); GLOM FILT RATE Estimated 104.8 mL/min (>60); GLUCOSE FASTING 180 mg/dL (70-110); MAGNESIUM 2.1 mg/dL (1.6-3.0); PHOSPHOROUS 1.7 mg/dL (2.5-4.6); POTASSIUM 3.5 mmol/L (3.5-5.1); PROTEIN TOTAL SERUM 5.9 g/dL (6.0-8.3); SODIUM 133 mmol/L (135-145)
[2017-01-04 05:00] LABS: BLOOD UREA NITROGEN <5 mg/dL (9-23)
[2017-01-05 07:38] LABS: HEMATOCRIT 26.9 % (35.0-45.0); HEMOGLOBIN 8.4 gm/dL (12.0-16.0); MEAN CELL VOLUME 74.8 FL (83-96); MEAN CORPUSCULAR HEMOGLOBIN 23.2 PG (28-34); MEAN PLATELET VOLUME 7.4 FL (6.5-11.5); RED BLOOD COUNT 3.6 X10e (3.90-5.30); RED CELL DISTRIBUTION WIDTH 20.5 % (11.0-15.5)
[2017-01-05 08:08] LABS: ALBUMIN SERUM 2.4 g/dL (3.5-5.0); ALKALINE PHOSPHATASE 73 U/L (32-92); ALT (SGPT) 15 U/L (10-40); AST (SGOT) 16 U/L (10-42); BILIRUBIN,TOTAL 0.1 mg/dL (0.2-2.0); CALCIUM SERUM 8.3 mg/dL (8.4-10.2); CARBON DIOXIDE 30 mmol/L (22-31); CHLORIDE 97 mmol/L (100-111); CREATININE SERUM 0.4 mg/dL (0.6-1.4); GLOM FILT RATE Estimated 104.8 mL/min (>60); GLUCOSE FASTING 210 mg/dL (70-110); MAGNESIUM 1.7 mg/dL (1.6-3.0); POTASSIUM 3.7 mmol/L (3.5-5.1); PROTEIN TOTAL SERUM 5.6 g/dL (6.0-8.3); SODIUM 134 mmol/L (135-145)
[2017-01-05 08:10] LABS: BLOOD UREA NITROGEN <5 mg/dL (9-23)
[2017-01-06 06:34] LABS: HEMATOCRIT 29.5 % (35.0-45.0); HEMOGLOBIN 9.1 gm/dL (12.0-16.0); MEAN CELL VOLUME 74.6 FL (83-96); MEAN CORPUSCULAR HEMOGLOBIN 23.1 PG (28-34); MEAN CORPUSCULAR HGB CONC 30.9 g/dL (30-36); MEAN PLATELET VOLUME 7.1 FL (6.5-11.5); RED BLOOD COUNT 3.96 X10e (3.90-5.30); RED CELL DISTRIBUTION WIDTH 19.7 % (11.0-15.5); WHITE BLOOD COUNT 9.2 X10e3 (4.0-10.5)
[2017-01-06 06:52] LABS: ALBUMIN SERUM 2.6 g/dL (3.5-5.0); ALKALINE PHOSPHATASE 72 U/L (32-92); ALT (SGPT) 14 U/L (10-40); AST (SGOT) 14 U/L (10-42); BILIRUBIN,TOTAL 0.4 mg/dL (0.2-2.0); CALCIUM SERUM 8.6 mg/dL (8.4-10.2); CARBON DIOXIDE 32 mmol/L (22-31); CHLORIDE 97 mmol/L (100-111); CREATININE SERUM 0.5 mg/dL (0.6-1.4); GLOM FILT RATE Estimated 97.4 mL/min (>60); GLUCOSE FASTING 175 mg/dL (70-110); MAGNESIUM 1.7 mg/dL (1.6-3.0); POTASSIUM 3.3 mmol/L (3.5-5.1); PROTEIN TOTAL SERUM 5.9 g/dL (6.0-8.3); SODIUM 137 mmol/L (135-145)
[2017-01-06 06:53] LABS: BLOOD UREA NITROGEN <5 mg/dL (9-23)
[2017-01-07 05:39] LABS: HEMATOCRIT 31.8 % (35.0-45.0); HEMOGLOBIN 9.7 gm/dL (12.0-16.0); MEAN CELL VOLUME 74.1 FL (83-96); MEAN CORPUSCULAR HEMOGLOBIN 22.5 PG (28-34); MEAN CORPUSCULAR HGB CONC 30.3 g/dL (30-36); MEAN PLATELET VOLUME 7.5 FL (6.5-11.5); RED BLOOD COUNT 4.29 X10e (3.90-5.30); WHITE BLOOD COUNT 10.2 X10e3 (4.0-10.5)
[2017-01-07 06:24] LABS: ALBUMIN SERUM 2.9 g/dL (3.5-5.0); BILIRUBIN,TOTAL 0.4 mg/dL (0.2-2.0); BUN/CREATININE RATIO 11.66; CREATININE SERUM 0.6 mg/dL (0.6-1.4); GLOM FILT RATE Estimated 91.7 mL/min (>60); POTASSIUM 3.6 mmol/L (3.5-5.1); PROTEIN TOTAL SERUM 6.3 g/dL (6.0-8.3)
[2017-01-08 05:48] LABS: HEMATOCRIT 27.5 % (35.0-45.0); HEMOGLOBIN 8.4 gm/dL (12.0-16.0); MEAN CELL VOLUME 74.1 FL (83-96); MEAN CORPUSCULAR HEMOGLOBIN 22.6 PG (28-34); MEAN CORPUSCULAR HGB CONC 30.6 g/dL (30-36); MEAN PLATELET VOLUME 7.8 FL (6.5-11.5); RED BLOOD COUNT 3.71 X10e (3.90-5.30); RED CELL DISTRIBUTION WIDTH 20.3 % (11.0-15.5)
[2017-01-08 06:14] LABS: ALBUMIN SERUM 2.8 g/dL (3.5-5.0); BILIRUBIN,TOTAL 0.4 mg/dL (0.2-2.0); BUN/CREATININE RATIO 13.33; CALCIUM SERUM 8.4 mg/dL (8.4-10.2); CREATININE SERUM 0.6 mg/dL (0.6-1.4); GLOM FILT RATE Estimated 91.7 mL/min (>60); MAGNESIUM 1.8 mg/dL (1.6-3.0)
[2017-01-08 06:22] LABS: POTASSIUM 2.9 mmol/L (3.5-5.1)
[2017-01-08] MEDS ORDERED: K-DUR20 ME2 PO (11:04)
== END 2017-01-08 12:22 | disposition home or self-care (01) | DRG 392 ==
LOC: CED 22:24 → C5C 01-02 04:15 → CEDOF 01-02 04:15 → CICCU3 01-02 04:15 → CEDOF 01-02 05:00 → CICCU3 01-02 05:00 → CED 01-02 05:00 → CEDOF 01-02 07:50 → CICCU3 01-02 08:21 → C5C 01-03 22:39
PROVIDERS: Internal Medicine; Internal Medicine Hematology; Nurse Practitioner Family; Psychiatry & Neurology Psychiatry; Surgery
PROC: 0DH67UZ Insertion of Feeding Device into Stomach, Via Natural or Artificial Opening (ICD-10-PCS; 2017-01-02)
PROC: 0DJD8ZZ Inspection of Lower Intestinal Tract, Via Natural or Artificial Opening Endoscopic (ICD-10-PCS; principal; 2017-01-04 12:00)
DX: K59.03 Drug induced constipation (principal); K56.69 Other intestinal obstruction; J96.10 Chronic respiratory failure, unspecified whether with hypoxia or hypercapnia; C34.90 Malignant neoplasm of unspecified part of unspecified bronchus or lung; E11.65 Type 2 diabetes mellitus with hyperglycemia; I11.0 Hypertensive heart disease with heart failure; I50.9 Heart failure, unspecified; K52.1 Toxic gastroenteritis and colitis; D64.9 Anemia, unspecified; E44.1 Mild protein-calorie malnutrition; E87.1 Hypo-osmolality and hyponatremia; K92.81 Gastrointestinal mucositis (ulcerative); J44.9 Chronic obstructive pulmonary disease, unspecified; T40.605A Adverse effect of unspecified narcotics, initial encounter; Y92.9 Unspecified place or not applicable; Z87.891 Personal history of nicotine dependence; Z79.4 Long term (current) use of insulin; I25.2 Old myocardial infarction; E78.5 Hyperlipidemia, unspecified; K74.60 Unspecified cirrhosis of liver; K58.9 Irritable bowel syndrome, unspecified; M19.90 Unspecified osteoarthritis, unspecified site; T50.8X5A Adverse effect of diagnostic agents, initial encounter; E83.39 Other disorders of phosphorus metabolism; E87.6 Hypokalemia; Z68.24 Body mass index [BMI] 24.0-24.9, adult; Z90.710 Acquired absence of both cervix and uterus; Z88.5 Allergy status to narcotic agent; Z88.1 Allergy status to other antibiotic agents; I25.10 Atherosclerotic heart disease of native coronary artery without angina pectoris; Z95.5 Presence of coronary angioplasty implant and graft; Z79.82 Long term (current) use of aspirin; Z80.3 Family history of malignant neoplasm of breast; Z92.21 Personal history of antineoplastic chemotherapy; Z92.3 Personal history of irradiation; D50.9 Iron deficiency anemia, unspecified; Z99.81 Dependence on supplemental oxygen; K57.90 Diverticulosis of intestine, part unspecified, without perforation or abscess without bleeding
CPT/HCPCS: 36415; 51701; 71010; 74000; 74177; 74270; 80048; 80053; 80076; 81003; 82150; 82607; 82728; 82947; 83540; 83550; 83605; 83690; 83735; 84100; 84132; 85025; 85027; 85610; 85730; 87086; 94640; 94664; 94760; 96361; 96374; 96375; 96376; 97116; 97162; 97166; 97530; 99285; G0378; G8978-GP; G8979-GP; G8980-GP; G8987-GO; G8988-GO; G8989-GO; J1030; J1170; J1815; J2250; J2270; J2405; J2543; J2765; J2920; J3475; Q9967

== ENCOUNTER → 2017-02-21 | Outpatient (CLI) | payer MEDICARE, OTHER ==
[~2017-02-21] MED LIST changes: +DEXAMETHASONE1 MG PO; +FENTANYL1 EAC1 TOP; +K-DUR20 ME2 PO
== END | disposition home or self-care (01) ==
LOC: CLAB 13:10
DX: R58 Hemorrhage, not elsewhere classified (principal); Z92.21 Personal history of antineoplastic chemotherapy
CPT/HCPCS: 86850; 86900; 86901; 86923

== ENCOUNTER → 2017-02-22 | Outpatient (CLI) | payer MEDICARE, OTHER | END | disposition home or self-care (01) | LOC: CSSDAY 08:35 | DX: Z51.11 Encounter for antineoplastic chemotherapy (principal); R58 Hemorrhage, not elsewhere classified; D64.9 Anemia, unspecified; C80.1 Malignant (primary) neoplasm, unspecified | CPT/HCPCS: 36430; 82947; J1200; J1642; J1940; P9016 ==

== ENCOUNTER 2017-02-25 13:09 | Emergency (ER) | payer MEDICARE, OTHER ==
[~2017-02-25] VITALS: Ht 152.4 cm; Wt 50.0 kg
--- NOTE | ~2017-02-25 | DS ---
Unit #: [id number] #: [id number] Patient: EMILY LEDEZMA [id number] [address] [address] [id number] I MR#: [id number] NAME: EMILY LEDEZMA ROOM: 560 Age: 71 Sex: F Admission Date: 02/25/2017 : 1945 Discharge Date: 02/26/2017 Attending Physician: Gareth Rosenbaum M.D. Primary Care Physician: Jennifer Brady M.D. DISCHARGE SUMMARY PRIMARY DIAGNOSIS Hemoptysis. SECONDARY DIAGNOSES 1. Non-small cell lung cancer stage IV, progressive. 2. Chronic obstructive pulmonary disease. 3. Congestive heart failure. 4. Anxiety. 5. Pain. HOSPITAL COURSE The patient was placed in observation status for hemoptysis with known lung cancer. She was given IV fluids, symptomatic treatment with amitriptyline, Dilaudid, Xanax and continued on her fentanyl patch. She was started on buspirone while here in the hospital for anxiety, which is stopped at discharge. She was seen by her oncologist the following morning, and after their discussion, the patient elected for going home with Hospice. Hospice will see and evaluate the patient at home on the 27 of February, which Dr. Davidson's office is calling Hospice and organizing. The patient was given scripts for Dilaudid and Xanax, as well as amitriptyline in the evening, to be used in addition to her previous home medications. DISCHARGE DISPOSITION To home. DISCHARGE STATUS Terminal. DISCHARGE ACTIVITY Ad nirali. DISCHARGE DIET Unrestricted. DISCHARGE MEDICATIONS Please see discharge med/rec. GOALS OF CARE The patient is comfort care. DISCHARGE FOLLOW-UP With Hospice who will evaluate the patient tomorrow. Unit #: [id number] #: [id number] Patient: EMILY LEDEZMA Dictated by... Juliano Wadsworth/jagruti TD: 02/28/2017 08:12 JOB #: [id number] DISCHARGE SUMMARY Page 1 of 1 X Gareth Rosenbaum MD X DISCHARGE SUMMARY
--- NOTE | ~2017-02-25 | HP ---
Unit #: [id number] #: [id number] Patient: EMILY LEDEZMA [address] [facility]. [place], [place] [address] [id number] I MR#: [id number] NAME: EMILY LEDEZMA ROOM: 560 Age: 71 Sex: F Admission Date: 02/25/2017 : 1945 Attending Physician: Meme Fitzpatrick M.D. Primary Care Physician: Jennifer Brady M.D. HISTORY AND PHYSICAL CHIEF COMPLAINT Coughing blood clots, fell yesterday. HISTORY OF PRESENT ILLNESS The patient is a 71-year-old female with a past medical history of stage IV nonsmall cell lung cancer, anemia, hypertension, hyperlipidemia, coronary artery disease, diabetes, cirrhosis, irritable bowel syndrome, and degenerative joint disease, who presented to the emergency department for evaluation of the above. The patient states that she was in her usual state of health until the day prior to admission when she fell. She states that she lost balance and hit the right side of her chest on the edge of the tub. She has had persistent pain since that time that she describes as "sharp." It is exacerbated by breathing and coughing. There are no alleviating factors. She started coughing up blood with clots. She denies any fever. She has had decreased appetite. She denies any vomiting or diarrhea. She was hospitalized last for severe constipation. She states that that is better. In the emergency department, initial oxygen saturation was 95% on four liters. CT of the chest, PE protocol, showed no PE but did show marked disease progression. A right eighth rib fracture was also noted. She was given 4 mg of morphine, 4 mg of Zofran, and 500 mL of normal saline, as well as a milligram of Dilaudid in the emergency department. She is being admitted to [facility] for evaluation and further treatment. PAST MEDICAL HISTORY 1. Admission to [facility] January 02, 2017, for abdominal pain secondary to severe opiate-induced constipation. 2. Stage IV nonsmall cell (squamous cell) lung cancer. The patient is status post chemotherapy and radiation. She also had Opdivo and Tecentriq and most recently Keytruda. The last dose of Keytruda was about five weeks ago. 3. Coronary artery disease, status post stent placement. 4. Hypertension. 5. Hyperlipidemia. 6. Diabetes. 7. Cirrhosis. 8. Irritable bowel syndrome. 9. Degenerative joint disease. 10. Chronic anemia. 11. Echocardiogram June 06, 2013, showed mild concentric left ventricular hypertrophy with an ejection fraction greater than 55%. Unit #: [id number] #: [id number] Patient: EMILY LEDEZMA PAST SURGICAL HISTORY 1. Cardiac stent placement. 2. Cervical spine surgery. 3. Hysterectomy. 4. Appendectomy. 5. Liver biopsy. 6. Hernia repair. 7. Bladder repair. 8. Bronchoscopy. 9. EGD and colonoscopy. SOCIAL HISTORY The patient lives with her daughter. She quit smoking in 2002. There is no alcohol use. She typically walks without assistance. Code status is a Do Not Resuscitate. FAMILY HISTORY Breast cancer. ALLERGIES Clindamycin. HOME MEDICATIONS 1. Dilaudid 4 mg q.4 hours. 2. Oxycodone 10 mg q.4 hours p.r.n. 3. NovoLog 10 units subcutaneous t.i.d. with meals. 4. Amitriptyline 5 mg at bedtime. 5. Baclofen 10 mg t.i.d. 6. Zofran 4 mg q.8 hours p.r.n. 7. Prednisone 30 mg daily. 8. Lipitor 80 mg daily. 9. Colace 100 mg daily p.r.n. 10. Prinivil 5 mg daily. 11. Montelukast 10 mg daily. 12. Aspirin 81 mg daily. 13. Plavix 75 mg daily. 14. Symbicort 160/4.5 at 2 puffs inhaled twice daily. 15. ProAir t.i.d. p.r.n. 16. Potassium 40 mEq daily. 17. Dexamethasone 1 mg twice daily. 18. Fentanyl 100 mcg patch q.72 hours. REVIEW OF SYSTEMS A complete review of systems is negative except as indicated in the HPI. The patient states that she has lost an unknown amount of weight. PHYSICAL EXAMINATION VITAL SIGNS: Temperature is 99.4, pulse 111, respirations 20, blood pressure 133/78, and oxygen saturation is 95% on 4 liters. GENERAL: Patient is a female who is chronically ill appearing and in no acute distress. HEENT: Head is atraumatic. Mucous membranes are moist. NECK: Supple. Trachea is midline. CARDIOVASCULAR: Regular rate and rhythm. LUNGS: Decreased breath sounds on the right. Breathing is mildly labored with conversation. ABDOMEN: Soft and nontender with bowel sounds present in all four Unit #: [id number] #: [id number] Patient: EMILY LEDEZMA. EXTREMITIES: Nontender with no pedal edema. NEUROLOGIC: Patient is awake and alert. She follows commands. PSYCHIATRIC: Mood and affect are normal. Patient is cooperative. SKIN: Skin of examined areas is warm and dry. DIAGNOSTIC STUDIES LABORATORY: INR is 1.1. Troponin is less than 0.05. Complete blood count notable for a white blood cell count of 17.7, hemoglobin and hematocrit 9.7 and 30.5, respectively, and MCV is 71.5. Comprehensive metabolic panel notable for a potassium of 3.1, chloride 92, CO2 is 34, glucose 155, and albumin 2.9. BNP is 39. IMAGING: Chest x-ray shows enlarging of left lung mass and complete opacification of the right lung. CT of the chest, PE protocol, shows no PE. Marked disease progression is noted. There is a right eighth rib fracture, as well as subacute T7 compression fracture. CARDIOLOGY: EKG shows sinus tachycardia with a rate of 108 beats per minute. ASSESSMENT The patient is a 71-year-old female with: 1. Hemoptysis secondary to #2 with a hemoglobin of 9.7. Hemoglobin was 8.4 on January 08, 2017. 2. Stage IV nonsmall lung cancer with marked progression of disease. 3. Fracture of eighth rib, right. 4. T7 compression fracture, subacute. 5. Microcytic anemia. The patient's hemoglobin was 8.4 on January 08, 2017. It is 9.7 today. 6. Hypokalemia with a potassium of 3.1. 7. Leukocytosis. The patient's white blood cell count was 11 on January 08, 2017. It is 17.7 today. She is chronically on steroids. I have not given antibiotics. 8. Hypertension. 9. Hyperlipidemia. 10. Coronary artery disease, status post cardiac stent placement. 11. Diabetes. 12. Cirrhosis. 13. Irritable bowel syndrome. 14. Degenerative joint disease. PLAN 1. Admit for observation to intermediate level. 2. Normal saline at 75 mL/hour. 3. Healthy-heart diet as tolerated. 4. Bedrest. 5. Fall precautions. 6. Consult Dr. Davidson regarding progression of lung cancer. 7. DuoNebs q.4 hours. 8. Hemoglobin and hematocrit later this evening to follow up anemia. Will plan to transfuse for hemoglobin less than 8 due to history of coronary artery disease. 9. Hold aspirin and Plavix. 10. Incentive spirometry. 11. Check magnesium level. 12. Potassium/magnesium protocol. 13. Serial cardiac enzymes. Unit #: [id number] #: [id number] Patient: EMILY LEDEZMA 14. Low-dose sliding scale insulin with Accu-Cheks. 15. Clarify if patient is taking both prednisone and dexamethasone. 16. SCDs for DVT prophylaxis. 17. Regarding code status, the patient is a Do Not Resuscitate. 1. Dictated by Juliano Reddy/nicole TD: 02/25/2017 21:53 JOB #: [id number] HISTORY AND PHYSICAL Page 1 of 1 X Meme Fitzaptrick MD HISTORY AND PHYSICAL
--- NOTE | ~2017-02-25 | CR72 ---
[facility] A Service of [facility] & [facility] RADIOLOGY TEXT RESULTS PATIENT: EMILY LEDEZMA LOCATION: C5B 560-01 : [birth year] UNIT #: [id number] AGE: [address]: Gareth Rosenbaum MD SEX: F ORDER DR: [id number] [facility] [address] [place], [place] [address] [id number] I MR#: [id number] Acc #: [id number] NAME: EMILY LEDEZMA : 1945 SEX: F STUDY DATE/TIME: 02/25/2017 14:28 UNIT: [facility] ROOM: [facility] STUDY DESCRIPTION: CR Chest Single View Portable Attending Physician: Meme Fitzpatrick M.D. Ordering Physician: Cameron Sarah Primary Care Physician: Jennifer Brady M.D. MEDICAL IMAGING REPORT This report is preliminary unless electronic signature is present EXAM Portable chest INDICATIONS Chest pain, cough, congestion, coughing up blood since last night. Patient fell. History of lung cancer. FINDINGS A portable view of the chest was obtained. The right hemithorax is completely opacified. On the previous study, it was only partially opacified. There are at least 2 lung masses visible on the left side and they seem to be increasing in size. The more central one measures 2 cm in diameter now where it measured 1.4 cm before, and the more inferior one measures 3.1 cm compared to 1.6 cm. There may be a third lesion in the upper chest now visible measuring 7.8 mm in diameter. The Port-A-Cath is in good position. IMPRESSION 1. There are lung massed in the left lung which are enlarging as compared with 12/31/2016. 2. There is also complete opacification of the right hemithorax now, whereas previously the lower lobe was aerated. 3. The mediastinum is in the midline. Dictated by... Juan Pablo Deal M.D. THIS IS AN ELECTRONICALLY VERIFIED REPORT Juan Pablo Deal M.D. at 02/26/2017 7:06 AM FEL/psc [facility] A Service of [facility] & [facility] RADIOLOGY TEXT RESULTS PATIENT: EMILY LEDEZMA LOCATION: C5B 560-01 : [birth year] UNIT #: [id number] AGE: [address]: Gareth Rosenbaum MD SEX: F ORDER DR: TD: 02/25/2017 16:31 JOB #: [id number] MEDICAL IMAGING REPORT Page 1 of 1 COPY
--- NOTE | ~2017-02-25 | CO ---
Unit #: [id number] #: [id number] Patient: EMILY LEDEZMA [id number] [address] [place], [place] [address] [id number] I MR#: [id number] NAME: EMILY LEDEZMA ROOM: 560 Age: 71 Sex: F Admission Date: 02/25/2017 : 1945 Attending Physician: Gareth Rosenbaum M.D. Primary Care Physician: Fernanda Swartz CONSULTATION REPORT CHIEF COMPLAINT Non-small cell lung cancer, squamous cell, stage IV, received palliative chemoradiation, Opdivo, Tecentriq, Keytruda, worsening uncontrolled pain for rib fracture. HISTORY OF PRESENT ILLNESS This is a 71-year-old female who started smoking at age of 12. She has almost 80 pack-year smoking. Recently the patient had multiple imaging studies. The patient was diagnosed with stage IV bilateral squamous cell carcinoma, right greater than left. The patient received chemoradiation Opdivo, Tecentriq and recently Keytruda. Now, she has progressive disease. She has significant decline in performance status. Decreased p.o. intake. Short of breath. Worsening pain. I saw here in clinic multiple times. The patient had a CT of the chest PE protocol on 02/25/2017. Mild progression of the disease. There is complete consolidative changes in the right lung. Multiple noncalcified nodules in the left lung. Compression fracture at T7. Cirrhosis of the liver. Her CBC showed WBC of 13.9, hemoglobin 9, platelets 314. Creatinine is 0.5. LFTs were normal. At present the patient feels weak, tired, low energy level. She is already DNR. The patient and the family requesting Hospice. She has decreased p.o. intake. Unable to maintain weight. REVIEW OF SYSTEMS CONSTITUTIONAL: No fever, no chills, no sweats, no weight loss. EYES: No visual symptoms. EARS, NOSE AND THROAT: There is no runny nose or sore throat or difficulty hearing. CARDIOVASCULAR: No chest pain. No shortness of breath. No palpitations. No orthopnea. No PND. RESPIRATORY: No cough. No wheezing. No hemoptysis. GASTROINTESTINAL: No nausea, vomiting, diarrhea, constipation, hematochezia or melena. GENITOURINARY: No urinary frequency, hesitancy or urgency. No blood in the urine. MUSCULOSKELETAL: No muscle or joint pain. NEUROLOGIC: No headache. No numbness or tingling. No weakness. No seizure. PSYCHIATRIC: No anxiety, depression or mood disturbance. ENDOCRINE: No excessive urination or thirst. Unit #: [id number] #: [id number] Patient: EMILY LEDEZMA DERMATOLOGIC: No rash or change in the skin. ALLERGIC/IMMUNOLOGIC: No symptoms. HEMATOLOGIC/LYMPHATIC: Denies any symptoms. PAST MEDICAL HISTORY 1. Non-small cell lung cancer, squamous cell, progressive disease, multiple chemo, failed. 2. COPD. 3. MT. 4. CHF. 5. Hypertension. 6. Diabetes. PAST SURGICAL HISTORY Extensive back surgeries for degenerative joint disease, hysterectomy, appendectomy. SOCIAL HISTORY As mentioned above, the patient has 80 pack-year smoking. Denies alcohol. 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 FAMILY HISTORY Sister had breast cancer at age of 70. Mother had breast cancer at age of 62. ALLERGIES None. CURRENT MEDICATIONS Dilaudid, Xanax, potassium, Combivent, BuSpar, Zestril, dexamethasone, Duragesic. PHYSICAL EXAMINATION VITAL SIGNS: Afebrile. Pulse 116, respirations 16, O2 sat on 4 liters 100%, blood pressure 141/91. HEENT: Moist mucosa. Pupils equally reactive to light. Extraocular muscles intact. Sclerae anicteric. No obvious bleeding from nasal mucosa or oral mucosa. Scalp normal. Hearing normal. NECK: No JVD. No lymphadenopathy. LYMPHATIC/HEMATOLOGIC: There is no palpable adenopathy in the neck, axilla or inguinal area. CARDIOVASCULAR: S1, S2. Regular rate and rhythm. No S3 or S4. RESPIRATORY: Bilateral wheezes. ABDOMEN/GASTROINTESTINAL: Abdomen is soft, nontender, nondistended. No hepatosplenomegaly. EXTREMITIES: There is no clubbing, no cyanosis, no edema. No varicose veins. NEUROLOGICAL: Patient is alert, awake and oriented x3. Cranial nerves II-XII are intact. Sensory grossly intact. Motor is 4/5 in all four extremities. Gait is normal. Station is normal. Language is normal. Memory is normal. DTRs +2 in all four extremities. MUSCULOSKELETAL: No joint swelling. No bony tenderness. No muscle tenderness. SKIN: No petechiae, no rash, no ecchymosis. PSYCHIATRIC: No anxiety. No delusions or hallucinations. There is no agitation. Eye contact is normal. Affect is appropriate. There is no flight of ideas. Unit #: [id number] #: [id number] Patient: EMILY LEDEZMA DIAGNOSTIC STUDIES IMAGING: As mentioned above. LAB: As mentioned above. ASSESSMENT AND PLAN This is a 71-year-old female who has the following active issues: 1. Non-small cell lung cancer, squamous cell. She started with stage IV. She received palliative chemoradiation, Opdivo, Tecentriq. The patient also received Keytruda. Now has progressive disease. She has lost weight. She is short of breath. She is symptomatic. She would like to go home with Hospice. She is DNR. 2. Pain. She is taking multiple pain medications, including Dilaudid, fentanyl patch, oxycodone. Partial control. At present she is receiving IV Dilaudid. 3. Anxiety. Started on Xanax. (1) patient has significant decline in performance. She is actively dying. DISCUSSION I had an extensive discussion with the patient and her daughter. She would like to go home with Hospice. She would like to spend her last days at home. She does not want inpatient Hospice. Today the patient will go home. My office will call and coordinate. Hospice will see her either tonight or tomorrow. Dictated by... Juliano Mariscal/jagruti TD: 02/26/2017 16:04 JOB #: [id number] CONSULTATION REPORT Page 1 of 1 X Ko Davidson MD CONSULTATION REPORT
--- NOTE | ~2017-02-25 | EKG ---
PATIENT: EMILY LEDEZMA UNIT #: [id number] Ventricular Rate: 108 BPM Atrial Rate: 108 BPM P-R Interval: 166 ms QRS Duration: 80 ms Q-T Interval: 332 ms QTC Calculation(Bezet): 444 ms P Wenham: 53 degrees Calculated R Wenham: -3 degrees Calculated T Wenham: 28 degrees Diagnosis Line: Sinus tachycardia Diagnosis Line: Possible Left atrial enlargement Diagnosis Line: Low voltage QRS Diagnosis Line: Borderline ECG Diagnosis Line: When compared with ECG of 05-SEP-2016 18:16, Diagnosis Line: Premature atrial complexes are no longer Present Diagnosis Line: Confirmed by DARIAN SEVERINO MD ([id number]) on 02/25/2017 Diagnosis Line: 6:06:19 PM INTERPRETING MD: MAYCOL ANDERSEN
--- NOTE | ~2017-02-25 | CT16 ---
[facility] A Service of [facility] RADIOLOGY TEXT RESULTS PATIENT: EMILY LEDEZMA LOCATION: [facility] 560-01 : 45 UNIT #: [id number] AGE: [address]: Gareth Rosenbaum MD SEX: F ORDER DR: [id number] [facility] [address] [place], [place] [address] [id number] MR#: [id number] Acc #: [id number] NAME: EMILY LEDEZMA : 1945 SEX: F STUDY DATE/TIME: 02/25/2017 15:21 UNIT: [facility] ROOM: STUDY DESCRIPTION: CT Angio Chest for PE Attending Physician: José Miguel Barnes M.D. Ordering Physician: José Miguel Barnes M.D. Primary Care Physician: Jennifer Brady M.D. MEDICAL IMAGING REPORT This report is preliminary unless electronic signature is present EXAM CT angiography of the chest with contrast, pulmonary embolism protocol. DATE 02/25/2017 HISTORY Hemoptysis, fell yesterday with right rib pain. History of lung cancer. COMPARISON CT angiography of the chest, PE protocol 09/05/2016. CT chest without contrast 12/07/2016. AP portable chest 02/25/2017 at 14:28. PROCEDURE 2 mm axial images through the chest after IV contrast administration. 3-D coronal MIP reformatted images were obtained. This CT exam was performed with one or more of the following radiation dose reduction techniques: Automatic exposure control, adjustment of mA and/or kV according to patient size, and iterative reconstruction. FINDINGS The right lung is completely consolidated with multifocal, ill-defined regions of peripheral enhancement, thought to represent superimposed right lung metastatic disease probably upon background postobstructive atelectasis or pneumonia. The patient's known right hilar mass is difficult to accurately measure on today's examination, and encases the right mainstem bronchus, and obstructs the right upper lobe bronchus and bronchus intermedius. Additionally, there is mass-like infiltration into the mediastinum both anterior and posterior to the refugio, with narrowing of the refugio. Adenopathy or mass extends to the subcarinal region. Moderate right pleural effusion is present. [facility]. [facility] A Service of [facility] & [facility] RADIOLOGY TEXT RESULTS PATIENT: EMILY LEDEZMA LOCATION: [facility] 560-01 : 45 UNIT #: [id number] AGE: [address]: Gareth Rosenbaum MD SEX: F ORDER DR: Left hilar adenopathy has developed measuring 1.7 x 3.2 cm. Multiple noncalcified nodules are seen within the left lung consistent with metastatic disease. An index nodule within the left lower lobe now measures 2.3 cm compared to 1.3 cm on 12/07/2016. An index nodule within the left lower lobe measuring 2.9 cm previously measured 1.6 cm. Additionally, there is interstitial thickening within the left lower lobe, worrisome for lymphangitic spread of disease. No pulmonary embolism is seen. There is attenuation of the segmental branches in the right lung due to presumed mass/consolidation. There is mild concentric pericardial effusion measuring up to 7 mm thickness anteriorly, similar to prior. Cirrhotic liver morphology but no focal liver lesions are identified. Adrenal glands are normal. Left renal cortical thinning and scarring. There is a compression fracture of the T7 vertebral body which appears subacute, but is new since 12/07/2016, with about 48% loss of vertebral body height but no significant bony retropulsion or subluxation. There is a right eighth rib fracture posterolaterally, which appears acute or subacute and is a new finding since 12/07/2016. IMPRESSION 1. No pulmonary embolism. 2. Marked progression of disease since 12/07/2016. The right hilar mass is difficult to accurately measure, as it appears infiltrative, with occlusion of the right upper lobe bronchus and bronchus intermedius, right middle and lower lobe bronchi, and the mass infiltrates into the mediastinum creating extrinsic compression and narrowing upon the refugio. 3. There is complete consolidative change within the right lung, with what appears to be areas of multifocal metastatic disease within the areas of consolidative lung. 4. Moderate-sized right pleural effusion has developed. 5. Multiple noncalcified nodules within the left lung, some of which are enlarged, some of which appear new since 12/07/2016, consistent with disease progression. 6. Abnormal interstitial thickening within the left lung predominantly at the base, worrisome for lymphangitic spread of tumor. 7. Suspected subacute compression fracture of T7 without bony retropulsion or subluxation, and suspected acute or subacute right eighth rib fracture laterally. These findings are new compared to 12/07/2016. 8. Cirrhotic liver morphology. 9. Multifocal left renal cortical scarring. [facility]. [facility] A Service of [facility] RADIOLOGY TEXT RESULTS PATIENT: EMILY LEDEZMA LOCATION: [facility] 560-01 : 45 UNIT #: [id number] AGE: [address]: Gareth Rosenbaum MD SEX: F ORDER DR: Dictated by... Elda Ward M.D. THIS IS AN ELECTRONICALLY VERIFIED REPORT Elda Ward M.D. at 02/26/2017 9:54 AM JEOVANY/sanam TD: 02/25/2017 17:29 JOB #: [id number] MEDICAL IMAGING REPORT Page 1 of 1 COPY
[~2017-02-25 13:09] MED LIST changes: -DEXAMETHASONE1 MG PO; -FENTANYL1 EAC1 TOP
[2017-02-25 15:08] LABS: BASOPHIL% 0.2 % (0-2.5); EOSINOPHIL# 0.2 X10e3 (0-0.7); EOSINOPHIL% 1.1 % (0.0-7.0); HEMATOCRIT 30.5 % (35.0-45.0); HEMOGLOBIN 9.7 gm/dL (12.0-16.0); LYMPHOCYTE# 0.3 X10e3 (1.0-3.5); LYMPHOCYTE% 1.8 % (17.0-45.0); MEAN CELL VOLUME 71.5 FL (83-96); MEAN CORPUSCULAR HEMOGLOBIN 22.8 PG (28-34); MEAN PLATELET VOLUME 7.1 FL (6.5-11.5); MONOCYTE% 5.5 % (3.0-12.0); NEUTROPHIL# 16.2 X10e3 (1.5-7.1); NEUTROPHIL% 91.4 % (40-75); PLATELET COUNT 398 X10e3 (140-420); RED BLOOD COUNT 4.27 X10e (3.90-5.30); RED CELL DISTRIBUTION WIDTH 23.6 % (11.0-15.5); WHITE BLOOD COUNT 17.7 X10e3 (4.0-10.5)
[2017-02-25 15:15] LABS: POC - GFR >60.0 mL/min (>60)
[2017-02-25 15:15] LABS: INR 1.1; PARTIAL THROMBOPLASTIN TIME 29.9 SECONDS (23.5-31.3); PROTHROMBIN TIME (PATIENT) 11.9 SECONDS (10.0-11.7)
[2017-02-25 15:16] LABS: POC - CKMB <1.0 ng/mL (0.0-7.9); POC - TROPONIN <0.05 ng/mL (<=0.05)
[2017-02-25 15:17] LABS: DIFF IND YES
[2017-02-25 15:20] LABS: PLATELET ESTIMATE NORMAL (NORMAL)
[2017-02-25 15:22] LABS: MICROCYTOSIS MOD
[2017-02-25 15:23] LABS: HYPOCHROMIA SL
[2017-02-25 15:25] LABS: ALBUMIN SERUM 2.9 g/dL (3.5-5.0); BILIRUBIN, DIRECT 0.2 mg/dL (0.0-0.2); BILIRUBIN,INDIRECT 0.6 mg/dL (0.0-0.9); BILIRUBIN,TOTAL 0.8 mg/dL (0.2-2.0); BUN/CREATININE RATIO 16.66; CREATININE SERUM 0.6 mg/dL (0.6-1.4); GLOM FILT RATE Estimated 91.7 mL/min (>60); POTASSIUM 3.1 mmol/L (3.5-5.1); PROTEIN TOTAL SERUM 7.4 g/dL (6.0-8.3)
[2017-02-25] MEDS ORDERED: DEXAMETHASONE1 MG PO (16:41)
[2017-02-25] MEDS ORDERED: FENTANYL1 EAC1 TOP (16:42)
[2017-02-25 21:44] LABS: HEMATOCRIT 29.9 % (35.0-45.0); HEMOGLOBIN 9.2 gm/dL (12.0-16.0)
[2017-02-25 22:00] LABS: CK TOTAL 12 IU/L (26-140)
[2017-02-26 01:42] LABS: BASOPHIL# 0.1 X10e3 (0-0.3); BASOPHIL% 0.4 % (0-2.5); EOSINOPHIL# 0.2 X10e3 (0-0.7); EOSINOPHIL% 1.6 % (0.0-7.0); LYMPHOCYTE# 0.4 X10e3 (1.0-3.5); LYMPHOCYTE% 3.2 % (17.0-45.0); MEAN CELL VOLUME 71.8 FL (83-96); MEAN CORPUSCULAR HEMOGLOBIN 23.1 PG (28-34); MEAN CORPUSCULAR HGB CONC 32.2 g/dL (30-36); MEAN PLATELET VOLUME 7.2 FL (6.5-11.5); MONOCYTE# 1.1 X10e3 (0-1.0); MONOCYTE% 7.7 % (3.0-12.0); NEUTROPHIL# 12.1 X10e3 (1.5-7.1); NEUTROPHIL% 87.1 % (40-75); PLATELET COUNT 340 X10e3 (140-420); RED CELL DISTRIBUTION WIDTH 23.7 % (11.0-15.5); WHITE BLOOD COUNT 13.9 X10e3 (4.0-10.5)
[2017-02-26 01:43] LABS: DIFF IND NO
[2017-02-26 01:53] LABS: CK TOTAL 12 IU/L (26-140)
[2017-02-26 01:56] LABS: ALBUMIN SERUM 2.5 g/dL (3.5-5.0); BILIRUBIN,TOTAL 0.5 mg/dL (0.2-2.0); CALCIUM SERUM 8.4 mg/dL (8.4-10.2); CREATININE SERUM 0.5 mg/dL (0.6-1.4); GLOM FILT RATE Estimated 97.4 mL/min (>60); MAGNESIUM 1.8 mg/dL (1.6-3.0); POTASSIUM 3.8 mmol/L (3.5-5.1); PROTEIN TOTAL SERUM 6.4 g/dL (6.0-8.3)
== END 2017-02-26 15:00 ==
LOC: CED 13:09 → CEDOF 17:45 → CED 19:04 → CEDOF 20:42 → C5B 20:42
PROVIDERS: Emergency Medicine; Family Medicine
DX: C34.90 Malignant neoplasm of unspecified part of unspecified bronchus or lung (principal); J44.9 Chronic obstructive pulmonary disease, unspecified; I11.9 Hypertensive heart disease without heart failure; I50.9 Heart failure, unspecified; F41.9 Anxiety disorder, unspecified; I25.10 Atherosclerotic heart disease of native coronary artery without angina pectoris; E11.9 Type 2 diabetes mellitus without complications; M19.90 Unspecified osteoarthritis, unspecified site; D50.9 Iron deficiency anemia, unspecified; E87.6 Hypokalemia; K58.9 Irritable bowel syndrome, unspecified; K74.60 Unspecified cirrhosis of liver; Z92.21 Personal history of antineoplastic chemotherapy; Z92.3 Personal history of irradiation; Z87.891 Personal history of nicotine dependence; Z88.1 Allergy status to other antibiotic agents; Z79.82 Long term (current) use of aspirin; Z79.02 Long term (current) use of antithrombotics/antiplatelets; Z79.51 Long term (current) use of inhaled steroids; Z79.899 Other long term (current) drug therapy; Z95.5 Presence of coronary angioplasty implant and graft; Z90.710 Acquired absence of both cervix and uterus; Z90.49 Acquired absence of other specified parts of digestive tract; Z98.890 Other specified postprocedural states
CPT/HCPCS: 36415; 71010; 71275; 80048; 80053; 80076; 82550; 82553; 82565; 82947; 83735; 83880; 84484; 85014; 85018; 85025; 85610; 85730; 87040; 93005; 94640; 94760; 96361; 96374; 96375; 96376; 99285; G0378; J1170; J1815; J2060; J2270; J2405; J3475; Q9967

== ENCOUNTER 2017-02-26 15:01 | Inpatient (IN) | payer OTHER ==
--- NOTE | ~2017-02-26 | HP ---
Unit #: [id number] #: [id number] Patient: REX LEDEZMA [id number] [facility] [address] [place], [place] [address] [id number] MR#: [id number] NAME: REX LEDEZMA ROOM: 560 Age: 71 Sex: F Admission Date: 02/26/2017 : 1945 Attending Physician: Gareth Rosenbaum M.D. Primary Care Physician: Jennifer Brady M.D. HISTORY AND PHYSICAL The patient was discharged on this day from [facility] and was admitted to a hospice scatter bed at [facility]. CHIEF COMPLAINT Terminal lung cancer, comfort care with uncontrolled anxiety. HISTORY OF PRESENT ILLNESS Rex Ledezma is a 71-year-old white female, who was recently in observation status at [facility] for hemoptysis associated with progressive stage IV lung cancer. She had plans to transition to hospice at home but hospice evaluated her in the hospital and was concerned that we needed to titrate her anxiety medications and titrate down her oxygen as her shortness of breath had been worsening and she was requiring upwards of 10 L of oxygen by nasal cannula. She was admitted to a scatter bed in the hospice scatter bed on February 26, 2017. PAST MEDICAL HISTORY Unchanged from previous H and P. MEDICATIONS Please see discharge summary from February 26, 2017. PHYSICAL EXAMINATION GENERAL: On the when patient is evaluated, she is lethargic. HEENT: She has secretions at her oropharynx. LUNGS: She has bilateral rhonchi and an inspiratory and expiratory rattle that is transmitting down from her oropharynx. ABDOMEN: Soft, nontender, nondistended. ASSESSMENT 1. Lung cancer. 2. Uncontrolled pain related to recent rib fracture and lung cancer. 3. Anxiety requiring high-dose IV Ativan for control at this time. PLAN Will continue aggressive symptomatic treatment. Will add Robinul for now. Hospice will continue to follow here in the hospital. The patient is rapidly worsening and will continue symptom control and defer to hospice for ultimate discharge planning whether the patient will be continued to be treated here or at an inpatient hospice unit or whether medications will be able to be stabilized enough for patient to continue to be treated at home. Unit #: [id number] #: [id number] Patient: REX LEDEZMA Dictated by Juliano Wadsworth/j luis TD: 02/27/2017 12:00 JOB #: [id number] HISTORY AND PHYSICAL Page 1 of 1 X Gareth Rosenbaum MD X HISTORY AND PHYSICAL
[~2017-02-26 15:01] MED LIST changes: +DEXAMETHASONE1 MG PO; +FENTANYL1 EAC1 TOP
== END 2017-02-27 20:33 | disposition expired | DRG 181 ==
LOC: C5B 15:01
DX: C34.90 Malignant neoplasm of unspecified part of unspecified bronchus or lung (principal); R04.2 Hemoptysis; S22.49XA Multiple fractures of ribs, unspecified side, initial encounter for closed fracture; Z51.5 Encounter for palliative care; F41.9 Anxiety disorder, unspecified; G89.3 Neoplasm related pain (acute) (chronic)
CPT/HCPCS: J1170; J1630; J2060